=== PATIENT | female | born 1940 | race Two or more races ===

== ENCOUNTER 2025-01-03 20:45 | Emergency (ER) | payer OTHER ==
[~2025-01-03] VITALS: Ht 154.9 cm; Wt 100.0 kg
--- NOTE | 2025-01-03 22:41 | ED.PDOC ---
History of Present Illness HPI Comments 84-year-old female came to ER via EMS for chest pains. Patient diagnosed 5 days ago at [facility] for pneumonia. She is still weak and recovering from her illness, when she found the urge to eat earlier so she ate some pizza. About an hour after, she started feeling dizzy and lightheaded, she felt nauseated and had vomiting and diarrhea. Then she started having left sided chest pains, heavy, which resolved spontaneously after 5 minutes. Patient has no more chest pains at this time of care. States she just feels weak and fatigued. Chief Complaint: Chest Pain Time Seen by MD: 22:40 Reviewed Notes: Nurses Notes Allergies: Coded Allergies: Aspirin (Verified Allergy, Unknown, 01/03/25) Penicillins (Verified Allergy, Unknown, 01/03/25) Information Source: Patient Mode of Arrival: EMS Severity: Moderate Timing: Hours Review of Systems REVIEW OF SYSTEMS: No fever, no chills, or fatigue HEENT: No sore throat, no earache, no congestion, no neck pain. Cardiac: (+) chest pain. No palpitations. Lungs: No shortness of breath, no cough. GI: No nausea, (+) vomiting, (+) diarrhea, no constipation, no abdominal pain : No dysuria, frequency, or urgency. No hematuria. Musculoskeletal: No joint pain , no joint swelling, no extremity edema. Skin: No rash, no itching. Neuro: No headache, (+) dizziness, no weakness Vital Signs Vital Signs Date Time Temp Pulse Resp B/P (MAP) Pulse Ox O2 Delivery O2 Flow Rate FiO2 01/04/25 02:32 77 14 112/61 (78) 95 01/04/25 00:27 Room Air* 0 21 21 01/04/25 00:26 97.8 97.8 Physical Exam General: Awake, alert and oriented. No acute distress. Skin: Skin in warm, dry and intact. Appropriate color for ethnicity. Nailbeds pink with no cyanosis. HEENT: The head is normocephalic and atraumatic. Conjunctivae are clear without exudates or hemorrhage. Sclera is non-icteric. EOM are intact. No signs of nystagmus. Eyelids are normal in appearance without swelling or lesions. Oral mucosa is pink and moist Neck: The neck is supple with normal range of motion. No JVD. Cardiac: Heart rate and rhythm are normal. No murmurs, gallops, or rubs are auscultated. Respiratory: No signs of respiratory distress. Lung sounds are clear in all lobes bilaterally without rales, ronchi, or wheezes. Abdominal: Abdomen is soft, non-tender without distention. Bowel sounds are present and normoactive in all four quadrants. Extremities: Upper and lower extremities are atraumatic in appearance without deformity or edema. Neurological: The patient is awake, alert and oriented to person, place, and time with normal speech. Speech is clear. There is no facial asymmetry. Psychiatric: Appropriate mood and affect. Good judgement and insight. No visual or auditory hallucinations. 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 Was a procedure done?: No EKG EKG : Pulse Rate (adult): 78 Cardiac Rhythm: Afib Differential Dx Considerations may include: Aspiration pneumonia, coronary artery disease, mi, electrolyte imbalance X-Ray, Labs, Meds, VS Vital Signs Date Time Temp Pulse Resp B/P (MAP) Pulse Ox O2 Delivery O2 Flow Rate FiO2 01/04/25 02:32 77 14 112/61 (78) 95 01/04/25 00:27 103 16 94 Room Air* 0 21 21 01/04/25 00:26 97.8 103 14 114/65 (81) 94 97.8 01/04/25 00:08 84 01/03/25 22:41 78 01/03/25 21:53 78 01/03/25 20:56 90 01/03/25 20:49 98.6 75 16 109/76 (87) 98 98.6 Lab Test 01/04/25 01:24 01/04/25 00:37 01/03/25 22:24 01/03/25 21:17 Range/Units Troponin I High Sensitivity 3 L 3 L < 3 L < 3 L </=34 ng/L White Blood Count 8.5 4.4-10.8 10^3/uL Red Blood Count 4.69 4.0-5.20 10^6/uL Hemoglobin 14.6 12.2-16.2 g/dL Hematocrit 45.0 36.0-46.0 % Mean Corpuscular Volume 95.8 80.0-100.0 fL Mean Corpuscular Hemoglobin 31.2 28.0-32.0 pg Mean Corpuscular Hemoglobin Concent 32.6 32.0-36.0 g/dL Red Cell Distribution Width 14.2 11.8-14.3 % Platelet Count 322 140-450 10^3/uL Mean Platelet Volume 9.9 6.9-10.8 fL Neutrophils (%) (Auto) 62.1 37.0-80.0 % Lymphocytes (%) (Auto) 28.5 10.0-50.0 % Monocytes (%) (Auto) 8.0 0.0-12.0 % Eosinophils (%) (Auto) 1.0 0.0-7.0 % Basophils (%) (Auto) 0.4 0.0-2.0 % Neutrophils # (Auto) 5.3 1.6-8.6 10 ^3/uL Lymphocytes # (Auto) 2.4 0.4-5.4 10 ^3/uL Monocytes # (Auto) 0.7 0-1.3 10 ^3/uL Eosinophils # (Auto) 0.1 0-0.8 10 ^3/uL Basophils # (Auto) 0 0-0.2 10 ^3/uL Nucleated Red Blood Cells 0.2 % Sodium Level 141 136-145 mmol/L Potassium Level 4.4 3.5-5.1 mmol/L Chloride Level 106 98-107 mmol/L Carbon Dioxide Level 24 20-31 mmol/L Anion Gap 11 5-15 Blood Urea Nitrogen 25 H 9-23 mg/dL Creatinine 1.02 0.550-1.02 mg/dL Glomerular Filtration Rate Calc 55 >90 mL/min BUN/Creatinine Ratio 24.5 H 10.0-20.0 Serum Glucose 172 H 74-106 mg/dL Calcium Level 10.9 H 8.7-10.4 mg/dL Total Bilirubin 0.3 0.2-1.0 mg/dL Aspartate Amino Transferase (AST) 20 13-40 U/L Alanine Aminotransferase (ALT) 24 7-40 U/L Alkaline Phosphatase 62 46-116 U/L B-Type Natriuretic Peptide 149.20 0-100 pg/mL Total Protein 7.2 5.7-8.2 g/dL Albumin 4.5 3.2-4.8 g/dL Time of 1ST Reevaluation: 22:33 Reevaluation 1ST: Unchanged Patient Education/Counseling: Diagnosis, Treatment Family Education/Counseling: No Family Present Departure 1 Departure Time of Disposition: 02:39 Impression: Primary Impression: Chest pain Disposition: 01 HOME / SELF CARE / HOMELESS Condition: Stable Additional Instructions: ED DISCHARGE INSTRUCTIONS Instructions: Please read all instructions provided in this packet carefully. Although you have been discharged from the Emergency Department, this does not mean that you have a "clean bill of health". No definitive diagnosis for your symptoms has been made today. It is possible that you are in the process of developing a serious illness. This is why you must return to the ED without fail if any new or worsening symptoms (especially if your symptoms include chest pain, trouble breathing, abdominal pain, fever, headache, confusion, trouble seeing, or trouble walking) It is also very important that you see a primary care doctor within the next 3-5 days to follow up. If you are unable to get an appointment, return to the ED for re-evaluation. CHEST PAIN EDUCATION There are many things that can cause chest pain. Some are not serious and will get better on their own in a few days. But some kinds of chest pain need more testing and treatment. Your doctor may have recommended a follow-up visit in the next few days. If you are not getting better, you may need more tests or treatment. Even though your doctor has released you, you still need to watch for any problems. The doctor carefully checked you, but sometimes problems can develop later. If you have new symptoms or if your symptoms do not get better, get medical care right away. If you have worse or different chest pain or pressure that lasts more than 5 minutes or you passed out (lost consciousness), call 911 or seek other emergency help right away. A medical visit is only one step in your treatment. Even if you feel better, you still need to do what your doctor recommends, such as going to all suggested follow-up appointments and taking medicines exactly as directed. This will help you recover and help prevent future problems. How can you care for yourself at home? Rest until you feel better. Take your medicine exactly as prescribed. Call your doctor if you think you are having a problem with your medicine. Do not drive after taking a prescription pain medicine. When should you call for help? Call 911 if: You passed out (lost consciousness). You have severe difficulty breathing. You have symptoms of a heart attack. These may include: Chest pain or pressure, or a strange feeling in your chest. Sweating. Shortness of breath. Nausea or vomiting. Pain, pressure, or a strange feeling in your back, neck, jaw, or upper belly or in one or both shoulders or arms. Lightheadedness or sudden weakness. A fast or irregular heartbeat. After you call 911, the chemical operator may tell you to chew 1 adult-strength or 2 to 4 low-dose aspirin. Wait for an ambulance. Do not try to drive yourself. Call your doctor now or seek immediate medical care if: You have any trouble breathing. You have new or different chest pain. You are dizzy or lightheaded, or you feel like you may faint. Watch closely for changes in your health, and be sure to contact your doctor if you do not get better as expected. Current as of: May 21, 2024 Author: Huddler Staff? Comments Extensive evaluation was performed in attempt to identify or rule out: (See differential diagnosis section) The following tests were ordered, and results were reviewed by me: (See diagnostic results section) The following test were independently interpreted by me: N/A I reviewed and agreed with the following test results read by other providers: N/A I reviewed the following notes from the pt's past medical encounters: (None available at this time) Additional information was gathered from interviewing the following independent historians: N/A Discussion of management or test interpretation with external physician/other qualified health animal daycare provider: N/A Addressed [ ]one or more chronic illnesses with severe exacerbation, progression, or side effects of treatment: [ ]an acute or chronic illness that poses a threat to life or bodily function: [ ] Decision regarding hospitalization or escalation of hospital level of care: Risk and benefits of admission for further treatment of patient's condition was considered. Due to patient's current clinical condition, high risk of decline and poor outcome if discharged and need for further inpatient management and monitoring, patient will be admitted to the hospital. Drug therapy requiring intensive monitoring for toxicity: N/A Parenteral controlled substances: N/A Decision regarding elective major surgery with identified patient or procedure r isk factors: N/A Decision regarding emergency major surgery: N/A Decision not to resuscitate or to de-escalate care because of poor prognosis: N/A Diagnosis or treatment significantly limited by social determinants of health: N/A Decision regarding hospitalization or escalation of hospital level of care: Risks and benefits of admission for further treatment of patient's condition was considered however due to patient's stable condition patient will be discharged to follow up closely or return to care for worsening of condition or inability to follow up. Critical Care Note Critical Care Time?: Yes (35 min-critical care time only) Critical care comment: Chest pain Stability Stability form required: No Heart Score Heart Score: Heart Score Response (Comments) Value History Moderate Suspicious 1 EKG Repolarization Disturb 1 Age >65 2 Risk Factors >3 or Hx ASHD 2 Troponin Normal limit 0 Total 6 I personally scribed for SHERMAN DOWNEY MD ([email or web address]) on 01/03/25 at 22:41. Electronically submitted by Reese Slater ([facility]). SHERMAN DOWNEY MD Jan 03, 2025 22:41
[2025-01-03 22:46] LABS: Basophils # (auto) 0 10 ^3/uL (0-0.2); Basophils % (auto) 0.4 % (0.0-2.0); Eosinophils # (auto) 0.1 10 ^3/uL (0-0.8); Hemoglobin 14.6 g/dL (12.2-16.2); Lymphocytes # (auto) 2.4 10 ^3/uL (0.4-5.4); Lymphocytes % (auto) 28.5 % (10.0-50.0); Mean Corpuscular Hemoglobin 31.2 pg (28.0-32.0); Mean Corpuscular Hgb Conc. 32.6 g/dL (32.0-36.0); Mean Corpuscular Volume 95.8 fL (80.0-100.0); Monocytes # (auto) 0.7 10 ^3/uL (0-1.3); Neutrophils # (auto) 5.3 10 ^3/uL (1.6-8.6); Neutrophils % (auto) 62.1 % (37.0-80.0); Nucleated Red Blood Cells % 0.2 %; Platelet Count (auto) 322 10^3/uL (140-450); Red Blood Cells 4.69 10^6/uL (4.0-5.20); Red Cell Distribution Width 14.2 % (11.8-14.3); White Blood Cell 8.5 10^3/uL (4.4-10.8)
[2025-01-03 23:15] LABS: Alanine Aminotransferase 24 U/L (7-40); Albumin 4.5 g/dL (3.2-4.8); Alkaline Phosphatase 62 U/L (46-116); Anion Gap 11 (5-15); Aspartate Aminotransferase 20 U/L (13-40); BUN/Creatinine Ratio 24.5 (10.0-20.0); Bilirubin, Total 0.3 mg/dL (0.2-1.0); Carbon Dioxide 24 mmol/L (20-31); Chloride 106 mmol/L (98-107); Potassium 4.4 mmol/L (3.5-5.1); Sodium 141 mmol/L (136-145); Total Protein 7.2 g/dL (5.7-8.2)
[2025-01-03 23:18] LABS: Blood Urea Nitrogen 25 mg/dL (9-23); Calcium 10.9 mg/dL (8.7-10.4); Glucose 172 mg/dL (74-106)
--- NOTE | 2025-01-03 23:44 | DVH ---
CHEST RADIOGRAPH Indication: cp Technique: Single frontal view of the chest was obtained COMPARISON: None FINDINGS: Lines and Tubes: None Lungs: Clear Pleura: No effusion.No pneumothorax. Cardiomediastinal contours: Unremarkable IMPRESSION: No abnormality demonstrated.
[2025-01-04 00:26] VITALS: TEMP 97.8
[2025-01-04 00:27] VITALS: PULSE 103; RESP 16; O2SAT 94
[2025-01-04 02:32] VITALS: BP 112/61; PULSE 77; RESP 14; O2SAT 95
--- NOTE | 2025-01-04 06:21 | ECG ---
[facility] Test Date: 2025-01-03 Test Time: 21:53:33 Pat Name: SAMEER ROSARIO Department: ER Room: Gender: F Class A Regional Drivers: : 1940 Requested By: SHERMAN DOWNEY Order Number: [id number] Reading MD: Abdirizak Leslie Measurements Intervals [place] Rate: 78 P: 0 GA: 0 QRS: 23 QRSD: 88 T: 1 QT: 357 QTc: 407 Interpretive Statements Atrial fibrillation Low voltage, precordial leads Borderline T abnormalities, inferior leads Electronically Signed On 01-04-2025 19:20:44 PDT by Abdirizak Leslie Please click the below link to view image of tracing.
--- NOTE | 2025-01-04 06:21 | ECG ---
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
--- NOTE | 2025-01-05 14:38 | ECG ---
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
== END 2025-01-04 03:09 | disposition home or self-care (01) ==
LOC: EDBD 20:45 → ER 20:51
DX: R07.9 Chest pain, unspecified (principal); R11.2 Nausea with vomiting, unspecified; R19.7 Diarrhea, unspecified; I10 Essential (primary) hypertension; I48.91 Unspecified atrial fibrillation; E11.9 Type 2 diabetes mellitus without complications; Z98.890 Other specified postprocedural states; Z88.0 Allergy status to penicillin; Z88.6 Allergy status to analgesic agent
CPT/HCPCS: 36415; 71045; 80053; 83880; 84484; 85025; 93005

== ENCOUNTER 2025-07-07 16:08 | Inpatient (IN) | payer OTHER ==
[~2025-07-07] VITALS: Ht 154.9 cm; Wt 91.9 kg
--- NOTE | 2025-07-07 16:53 | ED.PDOC ---
GI ASSESSMENT HPI Comments This is an 85-year-old female who comes with chief complaint of nausea and vomiting x1 month. The patient states that the symptoms have been worsening. She states that she vomited x3 today so she called the transport and was taken to the [facility]. At the clinic, her pain was an 8/10. The patient denies any fever or chills. She also states that she has not been having any normal bowel movements and denies any hematemesis. When the paramedics arrived, the patient's systolic was 94. The patient was given a total of 8 mg of Zofran IV push. The patient was also given normal saline bolus of 500 cc to address the hypotension. The patient is able to give us her medical history without any difficulty. Chief Complaint: Nausea/Vomiting Time Seen by MD: 16:12 Reviewed Notes: Nurses Notes, Sod Cutter Notes, Medications, Allergies (Allergies) Allergies: Coded Allergies: Aspirin (Verified Allergy, Unknown, 01/03/25) Penicillins (Verified Allergy, Unknown, 01/03/25) Mode of Arrival: EMS Past Medical History PAST MEDICAL HISTORY: AFIB, DM, GERD, High Lipids, HTN Past Medical History (Other): IBS Surgical History: Tonsillectomy Surgical History (Other): Bilateral hip surgery, cataract surgery DIRECTOR OF OFFICIATING History: Denies all DIRECTOR OF OFFICIATING Hx Family History Family History: No family hx of Cancer, No family hx of DM, No family hx of Heart thanh Social History Smoker: Non-Smoker Alcohol: Denies ETOH Use Drugs: Denies Drug Use Lives In: Home Constitutional: denies: chills, diaphoresis, fatigue, fever, malaise, sweats, weakness, others EENTM: denies: blurred vision, double vision, ear bleeding, ear discharge, ear drainage, ear pain, ear ringing, eye pain, eye redness, hearing loss, mouth pain , mouth swelling, nasal discharge, nose bleeding, nose congestion, nose pain, photophobia, tearing, throat pain, throat swelling, voice changes, others Respiratory: denies: cough, hemoptysis, orthopnea, SOB at rest, shortness of breath, SOB with excertion, stridor, wheezing, others Cardiovascular: denies: chest pain, dizzy spells, diaphoresis, Dyspnea on exertion, edema, irregular heart beat, left arm pain, lightheadedness, palpitations, PND, syncope, others Gastrointestinal: reports: abdominal pain, nausea, vomiting; denies: abdomen distended, blood streaked bowels, constipated, diarrhea, dysphagia, difficulty swallowing, hematemesis, melena, poor appetite, poor fluid intake, rectal bleeding, rectal pain, others Genitourinary: denies: abnormal vagina bleeding, burning, dyspareunia, dysuria, flank pain, frequency, hematuria, incontinence, pain, , vagina discharge, urgency, others Neurological: denies: dizziness, fainting, headache, left sided numbness, left sided weakness, numbness, paresthesia, pre-existing deficit, right sided numbness, right sided weakness, seizure, speech problems, tingling, tremors, weakness, others Musculoskeletal: denies: back pain, gout, joint pain, joint swelling, muscle pain, muscle stiffness, neck pain, others Integumetry: denies: bruises, change in color, change in hair/nails, dryness, laceration, lesions, lumps, rash, wounds, others Hematologic/Lymphatic: denies: anemia, blood clots, easy bleeding, easy bruising, swollen glands, others Endocrine: denies: excessive hunger, excessive sweating, excessive thirst, excessive urination, flushing, intolerance to cold, intolerance to heat, unexplained weight gain, unexplained weight loss, others Psychiatric: denies: anxiety, bipolar disorder, depression, hopeless, panic disorder, schizophrenia, sleepless, suicidal, others Physical Exam General Appearance: Moderate Distress, Obese HEENT: Normal ENT Inspection, Pharynx Normal, TMs Normal Neck: Full Range of Motion, Non-Tender, Normal, Normal Inspection Respiratory: Chest Non-Tender, Lungs Clear, No Accessory Muscle Use, No Respiratory Distress, Normal Breath Sounds Cardiovascular: No Edema, No JVD, No Murmur, No Gallop, Normal Peripheral Pulses, Regular Rate/Rhythm Breast Exam: Deferred Gastrointestinal: Diffuse, No Organomegaly, No Pulsatile Mass, Normal Bowel Sounds, Soft, Tenderness Genitalia: Deferred Pelvic: Deferred Rectal: Deferred Extremities: No calf tenderness, Normal capillary refill, Normal inspection, Normal range of motion, Non-tender, No pedal edema Musculoskeletal : Apperance: Normal Neurologic: Alert, manager of case II-XII nml as Tested, Motor Weakness, Normal Affect, Normal Mood, No Sensory Deficits Cerebellar Function: Normal Reflexes: Normal Skin: Dry, Normal Color, Warm Lymphatic: No Adenopathy EKG EKG : Pulse Rate (adult): 81 Dix: Normal Cardiac Rhythm: Afib Block: None ST: Nonsp Was a procedure done? Was a procedure done?: No GI differential Dx Differential Diagnosis: Appendicitis, Gastritis/PUD, Gastroenteritis, Inflammatory BD, Pancreatitis, UTI, Electrolyte Imbalance, Food Poisoning X-Ray, Labs, Meds, VS Vital Signs Date Time Temp Pulse Resp B/P (MAP) Pulse Ox O2 Delivery O2 Flow Rate FiO2 07/07/25 19:00 76 21 126/47 (73) 97 07/07/25 17:12 81 07/07/25 17:00 87 21 95 Room Air* 0 21 07/07/25 17:00 87 21 117/70 (86) 95 07/07/25 16:21 81 07/07/25 16:21 98.4 70 16 94/57 97 98.4 Lab Test 07/07/25 17:49 07/07/25 17:00 07/07/25 16:38 Range/Units POC Glucose 74 70-106 mg/dl Urine Color Light-orange Yellow Urine Clarity Turbid H Clear Urine pH 6.0 5.0-9.0 Urine Specific [place] 1.018 1.001-1.035 Urine Protein Trace H Negative Urine Ketones 4+ H Negative Urine Blood Negative Negative /uL Urine Nitrite 2+ H Negative Urine Bilirubin Negative Negative Urine Urobilinogen Normal Negative mg/dL Urine Leukocyte Esterase 3+ Negative /uL Urine RBC 3 0 - 4 /hpf Urine Microscopic WBC 147 H 0-5 /HPF Urine Squamous Epithelial Cells Few <5 /hpf Urine Bacteria Few H None Seen /hpf Urine Mucus Few None Seen Urine Glucose Normal Normal mg/dL White Blood Count 5.8 4.4-10.8 10^3/uL Red Blood Count 4.01 4.0-5.20 10^6/uL Hemoglobin 13.0 12.2-16.2 g/dL Hematocrit 38.9 36.0-46.0 % Mean Corpuscular Volume 96.8 80.0-100.0 fL Mean Corpuscular Hemoglobin 32.4 H 28.0-32.0 pg Mean Corpuscular Hemoglobin Concent 33.4 32.0-36.0 g/dL Red Cell Distribution Width 16.3 H 11.8-14.3 % Platelet Count 217 140-450 10^3/uL Mean Platelet Volume 9.0 6.9-10.8 fL Neutrophils (%) (Auto) 71.0 37.0-80.0 % Lymphocytes (%) (Auto) 17.2 10.0-50.0 % Monocytes (%) (Auto) 11.2 0.0-12.0 % Eosinophils (%) (Auto) 0.3 0.0-7.0 % Basophils (%) (Auto) 0.3 0.0-2.0 % Neutrophils # (Auto) 4.1 1.6-8.6 10 ^3/uL Lymphocytes # (Auto) 1.0 0.4-5.4 10 ^3/uL Monocytes # (Auto) 0.7 0-1.3 10 ^3/uL Eosinophils # (Auto) 0 0-0.8 10 ^3/uL Basophils # (Auto) 0 0-0.2 10 ^3/uL Nucleated Red Blood Cells 0.3 % Sodium Level 142 136-145 mmol/L Potassium Level 3.2 L 3.5-5.1 mmol/L Chloride Level 103 98-107 mmol/L Carbon Dioxide Level 21 20-31 mmol/L Anion Gap 18 H 5-15 Blood Urea Nitrogen < 5 L 9-23 mg/dL Creatinine 0.75 0.550-1.02 mg/dL Glomerular Filtration Rate Calc 79 >90 mL/min BUN/Creatinine Ratio 6.7 L 10.0-20.0 Serum Glucose 79 74-106 mg/dL Calcium Level 9.6 8.7-10.4 mg/dL Total Bilirubin 0.4 0.2-1.0 mg/dL Aspartate Amino Transferase (AST) 15 13-40 U/L Alanine Aminotransferase (ALT) < 9 7-40 U/L Alkaline Phosphatase 50 46-116 U/L Total Protein 5.6 L 5.7-8.2 g/dL Albumin 3.3 3.2-4.8 g/dL Lipase 44 12-53 U/L Current Medications Medications (Trade) Dose Ordered Sig/Estelle Route Start Time Stop Time Status Last Admin Sodium Chloride 500 ml @ 500 mls/hr Q1H ONCE IVB 07/07/25 16:15 07/07/25 17:14 DC 07/07/25 17:22 Levofloxacin/ Dextrose 100 ml @ 100 mls/hr ONCE ONCE IV 07/07/25 18:30 07/07/25 19:29 DC 07/07/25 18:54 PROCEDURE(s): ABPL - CT AB PEL WO CON-NO ORAL OR IV IMPRESSION: Limited evaluation of the intrapelvic structures due to streak artifact from bilateral hip prosthesis. No evidence of acute abdominopelvic abnormalities. Colonic diverticulosis without diverticulitis. IV Hep-Lock was established. The CBC is within normal limits. The CBC is within normal limits. The chemistry shows hypokalemia at 3.2 The rest of the lab work was within normal limits. The urine test shows: The urine is positive for a significant infection The patient was given Levaquin IV piggyback At this time we did contact [facility] and they stated that the patient should be admitted to our facility secondary to the possible syncopal episodes that she now states that she has had. The authorization number for admission is [id number] The patient is being admitted The patient also remains a little bit hypotensive as well. The patient is admitted Images Reviewed?: Images reviewed and evaluated by me Time of 1ST Reevaluation: 17:11 Reevaluation 1ST: Unchanged Patient Education/Counseling: Diagnosis, Treatment, Prognosis Family Education/Counseling: No Family Present SEPSIS Sepsis Screen Date sepsis recognized/suspect: Jul 07, 2025 Time Sepsis recognized/suspect: 1626 Recent Procedure: No On Antibiotic Therapy: No Respiratory Rate >20: No Heart Rate >90: No Temp<36 C (96.8 F) or >38.3 C: No SBP <90 or MAP <65 mmHG: No New Acute Mental Status Change: No Is the patient on CPAP, BIPAP,: No Physician Orders Ct Ab Pel Wo Con-No Oral Or Iv (07/07/25 16:13) Heplock Iv (07/07/25 16:13) Light Oil Operator (07/07/25 16:13) Blood Pressure (07/07/25 16:13) Pulse Oximetry (07/07/25 16:13) Electrocardigram (07/07/25 18:15) Potassium Chl 20meq/100ml (07/07/25 19:30) Vital Signs Date Time Temp Pulse Resp B/P (MAP) Pulse Ox O2 Delivery O2 Flow Rate FiO2 07/07/25 19:00 76 21 126/47 (73) 97 07/07/25 17:12 81 07/07/25 17:00 87 21 95 Room Air* 0 21 07/07/25 17:00 87 21 117/70 (86) 95 07/07/25 16:21 81 07/07/25 16:21 98.4 70 16 94/57 97 98.4 Laboratory Tests Test 07/07/25 16:38 White Blood Count 5.8 10^3/uL (4.4-10.8) Medications Medications Dose Ordered Sig/Estelle Route Start Time Stop Time Status Last Admin Dose Admin Levofloxacin/ Dextrose 100 ml @ 100 mls/hr ONCE ONCE IV 07/07/25 18:30 07/07/25 19:29 DC 07/07/25 18:54 Sodium Chloride 500 ml @ 500 mls/hr Q1H ONCE IVB 07/07/25 16:15 07/07/25 17:14 DC 07/07/25 17:22 Departure 1 Departure Time of Disposition: 18:18 Impression: Primary Impression: Intractable abdominal pain Additional Impressions: UTI (urinary tract infection) Qualified Codes: N30.01 - Acute cystitis with hematuria Intractable vomiting Autonomic dysfunction Disposition: ADMITTED INPATIENT Admit to: [facility] Condition: Fair Critical Care Note Critical Care Time?: No Stability Stability form required: Yes Unstable for transfer: Telemetry monitoring (Telemetry monitoring required), ED Physician Assesment (Clinical assesment) Heart Score Heart Score: Heart Score Response (Comments) Value History N/A 0 EKG N/A 0 Age N/A 0 Risk Factors N/A 0 Troponin N/A 0 Total 0 I personally scribed for AENL ARNOLD MD ([email or web address]) on 07/07/25 at 18:16. Electronically submitted by Pasha Ordaz ([email or web address]). ANEL ARNOLD MD Jul 07, 2025 16:53
[2025-07-07 17:00] VITALS: PULSE 87; RESP 21; O2SAT 95
[2025-07-07 17:00] LABS: Hematocrit 38.9 % (36.0-46.0); Hemoglobin 13.0 g/dL (12.2-16.2); Mean Corpuscular Hemoglobin 32.4 pg (28.0-32.0); Mean Corpuscular Volume 96.8 fL (80.0-100.0); Nucleated Red Blood Cells % 0.3 %
[2025-07-07 17:16] LABS: Albumin 3.3 g/dL (3.2-4.8); Alkaline Phosphatase 50 U/L (46-116); Anion Gap 18 (5-15); Calcium 9.6 mg/dL (8.7-10.4); Carbon Dioxide 21 mmol/L (20-31); Chloride 103 mmol/L (98-107); Glucose 79 mg/dL (74-106); Lipase 44 U/L (12-53); Sodium 142 mmol/L (136-145)
[2025-07-07 17:17] LABS: Bilirubin, Total 0.4 mg/dL (0.2-1.0)
[2025-07-07 17:18] LABS: Alanine Aminotransferase < 9 U/L (7-40); BUN/Creatinine Ratio 6.7 (10.0-20.0); Blood Urea Nitrogen < 5 mg/dL (9-23); Potassium 3.2 mmol/L (3.5-5.1); Total Protein 5.6 g/dL (5.7-8.2)
[2025-07-07] MEDS: SODIUM CHLORIDE 0.9% 500 ML IVB ONE (17:22)
[2025-07-07] MEDS: ONDANSETRON HCL 4 MG/2 ML VIAL IV ONE (17:22)
[2025-07-07] MEDS: MORPHINE SULFATE 4 MG/ML SYR/VIAL IV ONE (17:22)
--- NOTE | 2025-07-07 17:51 | DVH ---
Exam: CT CT AB PEL WO CON-NO ORAL OR IV History: pain Comparison Study: None TECHNIQUE: Multidetector CT of the abdomen and pelvis without IV contrast. Axial, coronal and sagitta l multiplanar reformats were obtained from the axial data set by the technologist. Radiation Dose Information: CT Dose: CTDI volume is 21.06 mGy. Dose-length product is 3.92 mGy*cm FINDINGS: Bibasilar atelectasis. Partially visualized heart is normal in size. Trace pericardial effusion. Liver, spleen, gallbladder, pancreas and adrenal glands unremarkable. 0.7 cm hyperdense right renal lesion which may represent a hemorrhagic / proteinaceous cysts. Otherw ise, kidneys, and visualized ureters unremarkable. The urinary bladder is obscured by streak artifact from bilateral hip prosthesis. Visualized uterus and adnexa unremarkable. There is Possible Wright ca theter within The Urinary bladder. Limited evaluation of the stomach due to inadequate distention. Small bowel loops unremarkable. Appe ndix is unremarkable. Small to moderate amount of fecal material within the colon. Colonic diverticu losis without diverticulitis. Mild distal rectal wall thickening which appears to be from inadequate distention. No evidence of Intraperitoneal free air or free fluid. No evidence of aortic aneurysm. Moderate atherosclerotic calcification of the aorta and bilateral il iacs. No significant lymphadenopathy. Moderate fat containing right ventral lower abdominal hernia within the musculature. Calcified inject ion granulomas of the bilateral posterior pelvis. Mild body wall edema. Bilateral hip prosthesis is n oted with streak artifact from hardware limiting evaluation of the adjacent structures. No evidence o f acute osseous abnormalities. IMPRESSION: Limited evaluation of the intrapelvic structures due to streak artifact from bilateral hip prosthesis . No evidence of acute abdominopelvic abnormalities. Colonic diverticulosis without diverticulitis.
[2025-07-07 18:04] LABS: Urine Protein, UAD TRACE (Negative)
[2025-07-07 19:45] VITALS: PULSE 68; RESP 17; O2SAT 96
[2025-07-07] MEDS ORDERED: MORPHINE SULFATE INJ 2 MG/ml SYRG IV PRN (20:00)
[2025-07-07] MEDS ORDERED: DEXTROSE (50%) 50ML SYRG IV PRN (20:00)
[2025-07-07] MEDS: POTASSIUM CHL 20MEQ/100ML 100 ML IV ONE (20:04)
[2025-07-07] MEDS: PANTOPRAZOLE 40 MG/10 ML VIAL INJ IV ONE (21:02)
[2025-07-07] MEDS: ONDANSETRON HCL 4 MG/2 ML VIAL IV PRN (21:02)
[2025-07-07] MEDS: SODIUM CHLORIDE 0.9% 1,000 ML IV ONE (22:41)
[2025-07-08] MEDS: ACCU-CHEK COMFORT CURVE STRIP VI SCH (01:30)
[2025-07-08] MEDS: InsuLIN REG 1unit/0.01ml Soln (100units/ml) SC SCH (01:30)
--- NOTE | 2025-07-08 04:53 | DVHHP2 ---
History of Present Illness Reason for Visit: Abdominal pain History of Present Illness 85-year-old female presents for evaluation of abdominal pain. Patient reports a one month history of decreased appetite with associated nausea, vomiting and diffuse abdominal pain. Patient reports symptoms began shortly after starting Ozempic on 05/26/2025. Patient stopped taking Ozempic on 06/15/2025 but symptoms continued. No diarrhea or constipation. Past Medical History Diabetes mellitus, GERD, dyslipidemia, hypertension, AFib Past Surgical History Tonsillectomy, bilateral hip surgery Family History Noncontributory Smoke: No ALCOHOL: none Drugs: None Lives: with Family Review of Systems Review of Systems Review of systems are currently negative otherwise addressed in HPI. Allergies: Coded Allergies: Aspirin (Verified Allergy, Unknown, 01/03/25) Penicillins (Verified Allergy, Unknown, 01/03/25) Medications Current Medications Medications Dose Ordered Sig/Estelle Route Start Time Stop Time Status Last Admin Dose Admin Pantoprazole Sodium 40 mg DAILY IV 07/08/25 10:00 Diagnostic Test (Pha) 1 strip Q6HR 07/08/25 00:00 07/08/25 01:30 1 STRIP Insulin Human Regular Q6HR SC 07/08/25 00:00 Dextrose 50 ml UD PRN IV 07/07/25 20:00 Acetaminophen/ Hydrocodone Bitart 1 tab Q4HP PRN PO 07/07/25 20:00 Ondansetron HCl 4 mg Q4HP PRN IV 07/07/25 20:00 07/07/25 21:02 4 MG Acetaminophen 650 mg Q6HP PRN PO 07/07/25 20:00 Morphine Sulfate 2 mg Q6HPRN PRN IV 07/07/25 20:00 Exam Vital Signs Vital Signs Date Time Temp Pulse Resp B/P (MAP) Pulse Ox O2 Delivery O2 Flow Rate FiO2 07/08/25 04:00 71 07/08/25 03:11 10 116/50 (72) 96 07/07/25 19:45 Room Air* 0 21 07/07/25 16:21 98.4 98.4 Exam Gen: 85-year-old female in mild distress Skin: Warm, dry, normal color and texture, no rash. HEENT: Normocephalic atraumatic, mucous membranes moist and pink. Neck: Cervical and supraclavicular nodes normal without enlargement, trachea is midline, thyroid gland is normal without masses. Pulmonary: Clear to auscultation and percussion bilaterally. Cardiac: Regular rate and rhythm. No murmur Abdomen: Soft, nontender, nondistended, bowel sounds present all 4 quadrants, no guarding, no rigidity, no organomegaly. Extremities: No cyanosis, clubbing, no edema Neuro: Cranial nerves II through XII grossly intact, normal affect and speech, no focal motor deficits. Labs/Xrays ORDERING PHYSICIAN: ANEL ARNOLD MD PROCEDURE(s): ABPL - CT AB PEL WO CON-NO ORAL OR IV REASON: pain ORDER NUMBER(s): [id number], ACCESSION NUMBER(s): [id number] Exam: CT CT AB PEL WO CON-NO ORAL OR IV History: pain Comparison Study: None TECHNIQUE: Multidetector CT of the abdomen and pelvis without IV contrast. Axial, coronal and sagittal multiplanar reformats were obtained from the axial data set by the technologist. Radiation Dose Information: CT Dose: CTDI volume is 21.06 mGy. Dose-length product is 3.92 mGy*cm FINDINGS: Bibasilar atelectasis. Partially visualized heart is normal in size. Trace pericardial effusion. Liver, spleen, gallbladder, pancreas and adrenal glands unremarkable. 0.7 cm hyperdense right renal lesion which may represent a hemorrhagic / proteinaceous cysts. Otherwise, kidneys, and visualized ureters unremarkable. The urinary bladder is obscured by streak artifact from bilateral hip prosthesis. Visualized uterus and adnexa unremarkable. There is Possible Wright catheter within The Urinary bladder. Limited evaluation of the stomach due to inadequate distention. Small bowel loops unremarkable. Appendix is unremarkable. Small to moderate amount of fecal material within the colon. Colonic diverticulosis without diverticulitis. Mild distal rectal wall thickening which appears to be from inadequate distention. No evidence of Intraperitoneal free air or free fluid. No evidence of aortic aneurysm. Moderate atherosclerotic calcification of the aorta and bilateral iliacs. No significant lymphadenopathy. Moderate fat containing right ventral lower abdominal hernia within the musculature. Calcified injection granulomas of the bilateral posterior pelvis. Mild body wall edema. Bilateral hip prosthesis is noted with streak artifact from hardware limiting evaluation of the adjacent structures. No evidence of acute osseous abnormalities. IMPRESSION: Limited evaluation of the intrapelvic structures due to streak artifact from bilateral hip prosthesis. No evidence of acute abdominopelvic abnormalities. Colonic diverticulosis without diverticulitis. Labs Test 07/08/25 04:14 07/07/25 17:00 07/07/25 16:38 Range/Units POC Glucose 70 70-106 mg/dl Urine Color Light-orange Yellow Urine Clarity Turbid H Clear Urine pH 6.0 5.0-9.0 Urine Specific [place] 1.018 1.001-1.035 Urine Protein Trace H Negative Urine Ketones 4+ H Negative Urine Blood Negative Negative /uL Urine Nitrite 2+ H Negative Urine Bilirubin Negative Negative Urine Urobilinogen Normal Negative mg/dL Urine Leukocyte Esterase 3+ Negative /uL Urine RBC 3 0 - 4 /hpf Urine Microscopic WBC 147 H 0-5 /HPF Urine Squamous Epithelial Cells Few <5 /hpf Urine Bacteria Few H None Seen /hpf Urine Mucus Few None Seen Urine Glucose Normal Normal mg/dL White Blood Count 5.8 4.4-10.8 10^3/uL Red Blood Count 4.01 4.0-5.20 10^6/uL Hemoglobin 13.0 12.2-16.2 g/dL Hematocrit 38.9 36.0-46.0 % Mean Corpuscular Volume 96.8 80.0-100.0 fL Mean Corpuscular Hemoglobin 32.4 H 28.0-32.0 pg Mean Corpuscular Hemoglobin Concent 33.4 32.0-36.0 g/dL Red Cell Distribution Width 16.3 H 11.8-14.3 % Platelet Count 217 140-450 10^3/uL Mean Platelet Volume 9.0 6.9-10.8 fL Neutrophils (%) (Auto) 71.0 37.0-80.0 % Lymphocytes (%) (Auto) 17.2 10.0-50.0 % Monocytes (%) (Auto) 11.2 0.0-12.0 % Eosinophils (%) (Auto) 0.3 0.0-7.0 % Basophils (%) (Auto) 0.3 0.0-2.0 % Neutrophils # (Auto) 4.1 1.6-8.6 10 ^3/uL Lymphocytes # (Auto) 1.0 0.4-5.4 10 ^3/uL Monocytes # (Auto) 0.7 0-1.3 10 ^3/uL Eosinophils # (Auto) 0 0-0.8 10 ^3/uL Basophils # (Auto) 0 0-0.2 10 ^3/uL Nucleated Red Blood Cells 0.3 % Sodium Level 142 136-145 mmol/L Potassium Level 3.2 L 3.5-5.1 mmol/L Chloride Level 103 98-107 mmol/L Carbon Dioxide Level 21 20-31 mmol/L Anion Gap 18 H 5-15 Blood Urea Nitrogen < 5 L 9-23 mg/dL Creatinine 0.75 0.550-1.02 mg/dL Glomerular Filtration Rate Calc 79 >90 mL/min BUN/Creatinine Ratio 6.7 L 10.0-20.0 Serum Glucose 79 74-106 mg/dL Calcium Level 9.6 8.7-10.4 mg/dL Total Bilirubin 0.4 0.2-1.0 mg/dL Aspartate Amino Transferase (AST) 15 13-40 U/L Alanine Aminotransferase (ALT) < 9 7-40 U/L Alkaline Phosphatase 50 46-116 U/L Total Protein 5.6 L 5.7-8.2 g/dL Albumin 3.3 3.2-4.8 g/dL Lipase 44 12-53 U/L SEPSIS Sepsis Screen Date sepsis recognized/suspect: Jul 07, 2025 Time Sepsis recognized/suspect: 1699 Recent Procedure: No On Antibiotic Therapy: No Respiratory Rate >20: No Heart Rate >90: No Temp<36 C (96.8 F) or >38.3 C: No SBP <90 or MAP <65 mmHG: No New Acute Mental Status Change: No Is the patient on CPAP, BIPAP,: No Vital Signs Date Time Temp Pulse Resp B/P (MAP) Pulse Ox O2 Delivery O2 Flow Rate FiO2 07/08/25 04:00 71 07/08/25 03:11 86 10 116/50 (72) 96 07/08/25 01:00 82 15 122/46 (71) 93 07/08/25 00:00 80 07/07/25 23:00 78 16 109/46 (67) 95 07/07/25 21:00 79 15 178/60 (99) 97 Medications Medications Dose Ordered Sig/Estelle Route Start Time Stop Time Status Last Admin Dose Admin Diagnostic Test (Pha) 1 strip Q6HR 07/08/25 00:00 07/08/25 01:30 1 STRIP Levofloxacin/ Dextrose 100 ml @ 100 mls/hr ONCE ONCE IV 07/07/25 18:30 07/07/25 19:29 DC 07/07/25 18:54 100 MLS/HR Ondansetron HCl 4 mg Q4HP PRN IV 07/07/25 20:00 07/07/25 21:02 4 MG Pantoprazole Sodium 40 mg ONCE ONCE IV 07/07/25 20:00 07/07/25 20:41 DC 07/07/25 21:02 40 MG Potassium Chloride 100 ml @ 50 mls/hr ONCE ONCE IV 07/07/25 19:30 07/07/25 21:29 DC 07/07/25 20:04 50 MLS/HR Sodium Chloride 1,000 ml @ 80 mls/hr [id number] ONCE IV 07/07/25 20:00 07/08/25 08:29 07/07/25 22:41 80 MLS/HR Assessment/Plan Assessment/Plan Assessment Intractable abdominal pain Complicated UTI Hypokalemia Hypotension Plan Admit the patient to [facility] to the hospitalist GI consult Levaquin Maintenance IV fluids Resume home medications Continue treatment per orders. Plan discussed with: Patient My Orders Orders - THIEN ZAVALA Procedure Category Date Status Time * Gi [facility] [employer] CONS 07/07/25 Transmitted 19:56 Pantoprazole PHA 07/08/25 In Process (Protonix) 10:00 Sodium Chloride 0.9% PHA 07/07/25 In Process 20:00 Glucose Blood PHA 07/08/25 In Process (Accu-Chek Comfort 00:00 Insulin R (Human) PHA 07/08/25 In Process (Insulin R) 00:00 Dextrose 50% Syringe PHA 07/07/25 In Process 20:00 Admit ADMIT 07/07/25 Transmitted 19:56 Hydrocodone-Acet PHA 07/07/25 In Process 5/325mg Tab (Waves 20:00 Ondansetron Hcl PHA 07/07/25 In Process (Zofran) 20:00 Complete Blood Count LAB 07/08/25 Logged 04:00 Condition: Stable MATHEUS 07/07/25 In Process 19:56 Acetaminophen Tablet PHA 07/07/25 In Process (Tylenol Tablet) 20:00 Clear Liq Diet DIET 07/08/25 Transmitted Breakfast Bedrest With Bathroom MATHEUS 07/07/25 In Process Privileg 19:56 Morphine Sulfate PHA 07/07/25 In Process Injection 20:00 Basic Metabolic Panel LAB 07/08/25 Logged 04:00 Date of Service: Jul 07, 2025 Billing Provider: THIEN ZAVALA Common Visit Codes: 89394-QCPUODO INP/OBS CARE (MOD) THIEN ZAVALA Jul 08, 2025 04:53
[2025-07-08 06:04] LABS: Sodium 144 mmol/L (136-145)
[2025-07-08 06:05] LABS: Anion Gap 15 (5-15); Carbon Dioxide 21 mmol/L (20-31)
[2025-07-08 06:06] LABS: Calcium 8.9 mg/dL (8.7-10.4)
[2025-07-08 06:11] LABS: Hematocrit 36.8 % (36.0-46.0); Hemoglobin 12.5 g/dL (12.2-16.2); Mean Corpuscular Hemoglobin 32.7 pg (28.0-32.0); Mean Corpuscular Volume 95.9 fL (80.0-100.0); Nucleated Red Blood Cells % 0.1 %
[2025-07-08 06:26] LABS: BUN/Creatinine Ratio 6.8 (10.0-20.0); Blood Urea Nitrogen < 5 mg/dL (9-23); Chloride 108 mmol/L (98-107); Glucose 69 mg/dL (74-106); Potassium 3.1 mmol/L (3.5-5.1)
[2025-07-08 08:00] VITALS: PULSE 78; RESP 16; O2SAT 97
--- NOTE | 2025-07-08 12:46 | ECG ---
[facility] Test Date: 2025-07-07 Test Time: 16:21:39 Pat Name: SAMEER ROSARIO Department: Room: [address] [place] [address] A Gender: F [facility] Office Supervisor: : 1940 Requested By: ANEL ARONLD Order Number: [id number] Reading MD: Abdirizak Leslie Measurements Intervals [place] Rate: 81 P: 0 MD: 0 QRS: 1 QRSD: 87 T: -5 QT: 348 QTc: 404 Interpretive Statements Atrial fibrillation Low voltage, precordial leads Electronically Signed On 07-08-2025 17:00:27 PDT by Abdirizak Leslie Please click the below link to view image of tracing.
--- NOTE | 2025-07-08 13:07 | DVHPN2 ---
Progress Note Date Seen: Jul 08, 2025 Medical Necessity Reason Pt with a Central, PICC or Fol: No Subjective Patient reports: No new complaints Review of Systems: HEENT:Normal, CVS:Normal, RESPIRATORY:Normal, GI:Normal, :Normal, MSK:Normal, NEURO:Normal Objective vital signs Vital Sign Date Time Temp Pulse Resp B/P (MAP) Pulse Ox O2 Delivery O2 Flow Rate FiO2 07/08/25 08:00 97.6 78 16 108/62 (77) 97 97.6 07/08/25 08:00 Room Air* 0 21 Total Intake and Output 07/07/25 07/07/25 07/08/25 15:00 23:00 07:00 Intake Total 500 ml 160 ml Balance 500 ml 160 ml medications Current Medications Medications Dose Ordered Sig/Estelle Route Start Time Stop Time Status Last Admin Dose Admin Pantoprazole Sodium 40 mg DAILY IV 07/08/25 10:00 Diagnostic Test (Pha) 1 strip Q6HR 07/08/25 00:00 07/08/25 06:09 1 STRIP Insulin Human Regular Q6HR SC 07/08/25 00:00 Dextrose 50 ml UD PRN IV 07/07/25 20:00 Acetaminophen/ Hydrocodone Bitart 1 tab Q4HP PRN PO 07/07/25 20:00 Ondansetron HCl 4 mg Q4HP PRN IV 07/07/25 20:00 07/07/25 21:02 4 MG Acetaminophen 650 mg Q6HP PRN PO 07/07/25 20:00 Morphine Sulfate 2 mg Q6HPRN PRN IV 07/07/25 20:00 Nystatin 5 ml QID MT 07/08/25 18:00 UNV Examination: GENERAL:Normal, HEENT:Normal, NECK:Normal, LUNGS:Normal, CVS:Normal, ABDOMEN:Normal, MSK:Normal, SKIN:Normal, NEURO:Normal, :Normal laboratory and microbiology Laboratory Tests 07/08/25 05:32 Test 07/08/25 05:32 Range/Units Serum Glucose 69 L 74-106 mg/dL Problem List/Assessment/Plan Problem List/Assessment/Plan #1 abd pain/dysphagia: gi eval #2 oral thrush: nystatin #3 dm: ssi #4 htn #5 obesity #6 uti: culture, iv rocephin advance care planning- full code- time spent 19 mins unstable for transfer Plan discussed with: Patient My Orders My Orders Orders - THIEN LEON MD Procedure Category Date Status Time Nystatin PHA 07/08/25 Transmitted (Mouth-Throat) 18:00 Nystatin PHA 07/08/25 Transmitted (Mouth-Throat) 13:00 Fluconazole Ivpb PHA 07/09/25 Transmitted Diflucan 10:00 Fluconazole Ivpb PHA 07/08/25 Transmitted Diflucan 13:00 D5 1/2 Ns Potassium PHA 07/08/25 Transmitted 20meq 13:00 Potassium Effervesent PHA 07/08/25 Transmitted Tab (Klor-Con/Ef) 13:00 Basic Metabolic Panel LAB 07/09/25 Verified 06:00 Complete Blood Count LAB 07/09/25 Verified 06:00 Magnesium LAB 07/09/25 Verified 05:00 Hemoglobin A1c LAB 07/09/25 Verified 06:00 Chest Portable XY 07/08/25 Transmitted 13:00 Urine Bacterial ROGER 07/08/25 Verified Culture 13:04 Ceftriaxone Ivpb PHA 07/09/25 Verified Rocephin 09:00 Ceftriaxone Ivpb PHA 07/08/25 Verified Rocephin 13:15 Date of Service: Jul 08, 2025 Billing Provider: THIEN LEON MD Common Visit Codes: [id number] INP/OBS CARE(HIGH) Secondary Visit Codes: [id number] CARE PLAN 30 MINUTES THIEN LEON MD Jul 08, 2025 13:07
--- NOTE | 2025-07-08 13:15 | DVHINCON2 ---
GI Consult Consult Note GI consult note Date of Consultation: 07/08/2025 Chief Complaint: Abdominal pain Referring Physician: Dank MENDOZA H&P: 85-year-old female admitted with complains of abdominal pain, for the past one month, also has complains of decreased appetite and nausea vomiting. Symptoms started when patient was taking Ozempic 05/26/2025, patient has stopped taking this medication 06/15/2025. Admits to slightly improved abdominal pain at this time. No EGD in past. Past Medical History: Diabetes mellitus, GERD, dyslipidemia, hypertension, AFib Past Surgical History: Tonsillectomy, bilateral hip surgery Social History: NO smoking, drinking ETOH and use of illegal drugs. Family History: Noncontributory Review of Systems: Constitutional: no fever, chill, weight loss HEENT: no eye pain, no hearing loss, no oral lesion, no scleral icterus Heart: no chest pain, no chest pressure Lung: no cough, no dyspnea with exertion Abdomen: see HPI Physical exam: General: NAD, AAOX3 Chest: lung goldberg clear to auscultation Heart: RRR, no murmur Abdomen: non-distended, no tenderness to palpation, +BS Labs: Labs Test 07/08/25 10:45 07/08/25 05:32 07/07/25 17:00 07/07/25 16:38 Range/Units POC Glucose 79 70-106 mg/dl White Blood Count 4.7 4.4-10.8 10^3/uL Red Blood Count 3.84 L 4.0-5.20 10^6/uL Hemoglobin 12.5 12.2-16.2 g/dL Hematocrit 36.8 36.0-46.0 % Mean Corpuscular Volume 95.9 80.0-100.0 fL Mean Corpuscular Hemoglobin 32.7 H 28.0-32.0 pg Mean Corpuscular Hemoglobin Concent 34.1 32.0-36.0 g/dL Red Cell Distribution Width 16.0 H 11.8-14.3 % Platelet Count 200 140-450 10^3/uL Mean Platelet Volume 9.2 6.9-10.8 fL Neutrophils (%) (Auto) 58.2 37.0-80.0 % Lymphocytes (%) (Auto) 25.8 10.0-50.0 % Monocytes (%) (Auto) 14.5 H 0.0-12.0 % Eosinophils (%) (Auto) 1.1 0.0-7.0 % Basophils (%) (Auto) 0.4 0.0-2.0 % Neutrophils # (Auto) 2.7 1.6-8.6 10 ^3/uL Lymphocytes # (Auto) 1.2 0.4-5.4 10 ^3/uL Monocytes # (Auto) 0.7 0-1.3 10 ^3/uL Eosinophils # (Auto) 0.1 0-0.8 10 ^3/uL Basophils # (Auto) 0 0-0.2 10 ^3/uL Nucleated Red Blood Cells 0.1 % Sodium Level 144 136-145 mmol/L Potassium Level 3.1 L 3.5-5.1 mmol/L Chloride Level 108 H 98-107 mmol/L Carbon Dioxide Level 21 20-31 mmol/L Anion Gap 15 5-15 Blood Urea Nitrogen < 5 L 9-23 mg/dL Creatinine 0.73 0.550-1.02 mg/dL Glomerular Filtration Rate Calc 82 >90 mL/min BUN/Creatinine Ratio 6.8 L 10.0-20.0 Serum Glucose 69 L 74-106 mg/dL Calcium Level 8.9 8.7-10.4 mg/dL Urine Color Light-orange Yellow Urine Clarity Turbid H Clear Urine pH 6.0 5.0-9.0 Urine Specific [place] 1.018 1.001-1.035 Urine Protein Trace H Negative Urine Ketones 4+ H Negative Urine Blood Negative Negative /uL Urine Nitrite 2+ H Negative Urine Bilirubin Negative Negative Urine Urobilinogen Normal Negative mg/dL Urine Leukocyte Esterase 3+ Negative /uL Urine RBC 3 0 - 4 /hpf Urine Microscopic WBC 147 H 0-5 /HPF Urine Squamous Epithelial Cells Few <5 /hpf Urine Bacteria Few H None Seen /hpf Urine Mucus Few None Seen Urine Glucose Normal Normal mg/dL Total Bilirubin 0.4 0.2-1.0 mg/dL Aspartate Amino Transferase (AST) 15 13-40 U/L Alanine Aminotransferase (ALT) < 9 7-40 U/L Alkaline Phosphatase 50 46-116 U/L Total Protein 5.6 L 5.7-8.2 g/dL Albumin 3.3 3.2-4.8 g/dL Lipase 44 12-53 U/L Imaging: CT abdomen pelvis IMPRESSION: Limited evaluation of the intrapelvic structures due to streak artifact from b ilateral hip prosthesis. No evidence of acute abdominopelvic abnormalities. Colonic diverticulosis without diverticulitis. Assessment: Abdominal pain Nausea and vomiting possible secondary to Ozempic use UTI Plan: Discussed with Dr. Dalton - Pt will be scheduled for an EGD today 07/08/2025. Pt was informed of the risks (bleeding, infection, perforation, reaction to sedation medications and cardiopulmonary arrest) and benefit and is agreeable to undergo the procedures. Patient refused endoscopy at this time Protonix and Zofran Full liquid diet Recommend extreme caution with Ozempic use in future We will continue to monitor patient Plan discussed with patient and RN Thank you for this consult Date of Service: Jul 08, 2025 Billing Provider: PATSY DEAL Common Visit Codes: CONSULT ONLY Consultation Codes: [id number] CONSULT <60MIN PATSY DEAL Jul 08, 2025 13:15
--- NOTE | 2025-07-08 13:52 | DVH ---
EXAM: XY CHEST PORTABLE Indication: HTN Technique: Single frontal view of the chest was obtained Comparison: XY CHEST XRAY 1 VIEW on DOS: 01/03/25 FINDINGS: Lines and Tubes: None Lungs: No focal consolidation. Pleura: No effusion. No pneumothorax. Cardiomediastinal contours: Unremarkable. Atherosclerotic vascular calcifications of the thoracic ao rta are noted. Bones: No acute osseous abnormality. IMPRESSION: No acute cardiopulmonary disease.
[2025-07-08] MEDS: PANTOPRAZOLE 40 MG/10 ML VIAL INJ IV SCH (14:22)
[2025-07-08] MEDS: NYSTATIN (MOUTH-THROAT) 500,000 UNITS/5 ML SUSP MT ONE (14:22)
[2025-07-08] MEDS: POTASSIUM EFFERVESENT TAB 25 MEQ PO ONE (14:23)
[2025-07-08] MEDS: FLUCONAZOLE 200MG/100ML 100 ML IV ONE (14:59)
[2025-07-08] MEDS: D5W/SOD CHL 0.45%/KCL 20MEQ 1,000 ML IV SCH (15:48)
[2025-07-08] MEDS: NYSTATIN (MOUTH-THROAT) 500,000 UNITS/5 ML SUSP MT SCH (18:00)
[2025-07-08 18:05] VITALS: BP 135/84; PULSE 96; RESP 18; TEMP 97.8; O2SAT 95
[2025-07-08 20:00] VITALS: RESP 18; O2SAT 98
[2025-07-08 21:00] VITALS: BP 116/68; PULSE 84; RESP 16; TEMP 98.7; O2SAT 92
[2025-07-09] VITALS (7 sets, daily range): BP systolic 98–144; BP diastolic 60–82; PULSE 68–94; RESP 14–20; TEMP 97.6–98.5; O2SAT 95–98
[2025-07-09 07:27] LABS: Potassium 3.8 mmol/L (3.5-5.1); Sodium 145 mmol/L (136-145)
[2025-07-09 07:28] LABS: Anion Gap 12 (5-15); Carbon Dioxide 26 mmol/L (20-31)
[2025-07-09 07:29] LABS: Calcium 9.3 mg/dL (8.7-10.4)
[2025-07-09 07:30] LABS: Chloride 107 mmol/L (98-107)
[2025-07-09 07:33] LABS: Glucose 74 mg/dL (74-106)
[2025-07-09 07:34] LABS: Hematocrit 38.5 % (36.0-46.0); Hemoglobin 13.0 g/dL (12.2-16.2); Mean Corpuscular Hemoglobin 32.5 pg (28.0-32.0); Mean Corpuscular Volume 96.2 fL (80.0-100.0); Nucleated Red Blood Cells % 0.0 %
[2025-07-09 07:41] LABS: BUN/Creatinine Ratio 7.0 (10.0-20.0); Blood Urea Nitrogen < 5 mg/dL (9-23); Magnesium 1.3 mg/dL (1.6-2.6)
[2025-07-09] MEDS: FLUCONAZOLE 200MG/100ML 100 ML IV SCH (10:32)
--- NOTE | 2025-07-09 10:39 | DVHDS2 ---
Discharge Summary Date of Admission Jul 07, 2025 at 19:56 Date of Discharge: Jul 09, 2025 Labs/Diagnostic Data: Laboratory Results Test 07/09/25 06:08 07/09/25 06:03 07/07/25 17:00 07/07/25 16:38 White Blood Count 4.7 10^3/uL (4.4-10.8) Red Blood Count 4.00 10^6/uL (4.0-5.20) Hemoglobin 13.0 g/dL (12.2-16.2) Hematocrit 38.5 % (36.0-46.0) Mean Corpuscular Volume 96.2 fL (80.0-100.0) Mean Corpuscular Hemoglobin 32.5 pg (28.0-32.0) Mean Corpuscular Hemoglobin Concent 33.8 g/dL (32.0-36.0) Red Cell Distribution Width 16.4 % (11.8-14.3) Platelet Count 211 10^3/uL (140-450) Mean Platelet Volume 9.5 fL (6.9-10.8) Neutrophils (%) (Auto) 58.3 % (37.0-80.0) Lymphocytes (%) (Auto) 26.8 % (10.0-50.0) Monocytes (%) (Auto) 12.4 % (0.0-12.0) Eosinophils (%) (Auto) 2.1 % (0.0-7.0) Basophils (%) (Auto) 0.4 % (0.0-2.0) Neutrophils # (Auto) 2.7 10 ^3/uL (1.6-8.6) Lymphocytes # (Auto) 1.3 10 ^3/uL (0.4-5.4) Monocytes # (Auto) 0.6 10 ^3/uL (0-1.3) Eosinophils # (Auto) 0.1 10 ^3/uL (0-0.8) Basophils # (Auto) 0 10 ^3/uL (0-0.2) Nucleated Red Blood Cells 0.0 % Sodium Level 145 mmol/L (136-145) Potassium Level 3.8 mmol/L (3.5-5.1) Chloride Level 107 mmol/L (98-107) Carbon Dioxide Level 26 mmol/L (20-31) Anion Gap 12 (5-15) Blood Urea Nitrogen < 5 mg/dL (9-23) Creatinine 0.71 mg/dL (0.550-1.02) Glomerular Filtration Rate Calc 84 mL/min (>90) BUN/Creatinine Ratio 7.0 (10.0-20.0) Serum Glucose 74 mg/dL (74-106) Hemoglobin A1c 5.0 % A1C (<5.7) Calcium Level 9.3 mg/dL (8.7-10.4) Magnesium Level 1.3 mg/dL (1.6-2.6) Thyroid Stimulating Hormone (TSH) 3.26 uIU/mL (0.55-4.78) POC Glucose 84 mg/dl (70-106) Urine Color Light-orange (Yellow) Urine Clarity Turbid (Clear) Urine pH 6.0 (5.0-9.0) Urine Specific [place] 1.018 (1.001-1.035) Urine Protein Trace (Negative) Urine Ketones 4+ (Negative) Urine Blood Negative /uL (Negative) Urine Nitrite 2+ (Negative) Urine Bilirubin Negative (Negative) Urine Urobilinogen Normal mg/dL (Negative) Urine Leukocyte Esterase 3+ /uL (Negative) Urine RBC 3 /hpf (0 - 4) Urine Microscopic WBC 147 /HPF (0-5) Urine Squamous Epithelial Cells Few /hpf (<5) Urine Bacteria Few /hpf (None Seen) Urine Mucus Few (None Seen) Urine Glucose Normal mg/dL (Normal) Total Bilirubin 0.4 mg/dL (0.2-1.0) Aspartate Amino Transferase (AST) 15 U/L (13-40) Alanine Aminotransferase (ALT) < 9 U/L (7-40) Alkaline Phosphatase 50 U/L (46-116) Total Protein 5.6 g/dL (5.7-8.2) Albumin 3.3 g/dL (3.2-4.8) Lipase 44 U/L (12-53) Other Laboratory Tests 07/09/25 06:08 Brief Hx & Hospital Course: see dictated note Condition at Discharge: Fair Final Diagnosis/Problems List abd pain Discharge Disposition: Acute Care Facility Discharge Instruct/Medications Diet: Regular Activity: No Restrictions, As Tolerated Follow Up/Referral: fu with pcp in 1wk Medications: per dec Discharge Statement: "Patient was advised to return to the ER or call 911 if any headaches, dizziness, shortness of breath, chest pain, abdominal pain, bleeding, fevers, or worsening of medical condition. Patient was counseled about treatment plan, medications, possible side effects, patientverbalized understanding. All questions were answered to the best of my ability. This discharge took greater then 30 minutes in planning, reviewing documentation, counseling the patient, and discussing with other team members." ASSESSMENT ASSESSMENT Assessment abd pain Date of Service: Jul 09, 2025 Billing Provider: THIEN LEON MD Common Visit Codes: [id number]/[id number] DISCH DAY >30min THIEN LEON MD Jul 09, 2025 10:39
[2025-07-09] MEDS: ACETAMINOPHEN 325 MG TAB PO PRN (12:52)
--- NOTE | 2025-07-09 13:39 | DVHPN2 ---
Subjective Still having same symptoms Patient has nausea. No vomiting Patient is still complains of poor appetite Patient was on Ozempic DC med on 06/15/2025 Changes from previous H/P or p: No Changes Objective Vitals Vital Signs Date Time Temp Pulse Resp B/P (MAP) Pulse Ox O2 Delivery O2 Flow Rate FiO2 07/09/25 13:00 97.6 86 14 101/72 (82) 98 97.6 07/08/25 20:00 Room Air* 0 21 Intake/Output Intake and Output 07/09/25 07:00 Intake Total 1365 ml Output Total 1075 ml Balance 290 ml Intake Oral 500 ml IV Total 865 ml Output Urine Total 1075 ml General Appearance: Alert, Oriented X3 Lungs: Clear to auscultation Cardiovascular: Regular rate Abdomen: Normal bowel sounds, Soft Medications Current Medications Medications Dose Ordered Sig/Estelle Route Start Time Stop Time Status Last Admin Dose Admin Pantoprazole Sodium 40 mg DAILY IV 07/08/25 10:00 07/09/25 10:32 40 MG Diagnostic Test (Pha) 1 strip Q6HR 07/08/25 00:00 07/09/25 12:00 1 STRIP Insulin Human Regular Q6HR SC 07/08/25 00:00 Dextrose 50 ml UD PRN IV 07/07/25 20:00 Acetaminophen/ Hydrocodone Bitart 1 tab Q4HP PRN PO 07/07/25 20:00 Ondansetron HCl 4 mg Q4HP PRN IV 07/07/25 20:00 07/07/25 21:02 4 MG Acetaminophen 650 mg Q6HP PRN PO 07/07/25 20:00 07/09/25 12:52 650 MG Morphine Sulfate 2 mg Q6HPRN PRN IV 07/07/25 20:00 Nystatin 5 ml QID MT 07/08/25 18:00 07/09/25 12:38 5 ML Fluconazole 100 ml @ 100 mls/hr DAILY IV 07/09/25 10:00 07/09/25 10:32 100 MLS/HR Potassium Chloride/Dextrose/ Sod Cl 1,000 ml @ 75 mls/hr [id number] IV 07/08/25 13:00 07/08/25 15:48 75 MLS/HR Ceftriaxone Sodium 50 ml @ 100 mls/hr DAILY@09 IV 07/09/25 09:00 07/09/25 10:32 100 MLS/HR Laboratory Results Laboratory Tests 07/09/25 06:08 Chemistry Test 07/09/25 06:08 Calcium Level 9.3 mg/dL (8.7-10.4) Magnesium Level 1.3 mg/dL (1.6-2.6) L Coagulation Test 07/09/25 13:15 Prothrombin Time Pending Prothrombin Time INR Pending HgA1c, TSH Test 07/09/25 06:08 Hemoglobin A1c 5.0 % A1C (<5.7) Thyroid Stimulating Hormone (TSH) 3.26 uIU/mL (0.55-4.78) Urinalysis Test 07/07/25 17:00 Urine Color Light-orange (Yellow) Urine Clarity Turbid (Clear) H Urine pH 6.0 (5.0-9.0) Urine Specific [place] 1.018 (1.001-1.035) Urine Protein Trace (Negative) H Urine Ketones 4+ (Negative) H Urine Blood Negative /uL (Negative) Urine Nitrite 2+ (Negative) H Urine Bilirubin Negative (Negative) Urine Urobilinogen Normal mg/dL (Negative) Urine Leukocyte Esterase 3+ /uL (Negative) Urine RBC 3 /hpf (0 - 4) Urine Microscopic WBC 147 /HPF (0-5) H Urine Squamous Epithelial Cells Few /hpf (<5) Urine Bacteria Few /hpf (None Seen) H Urine Mucus Few (None Seen) Urine Glucose Normal mg/dL (Normal) Microbiology Microbiology Date/Time Source Procedure Growth Status 07/07/25 17:00 Voided Urine Urine Culture - Preliminary Resulted Labs and/or images reviewed: Labs reviewed by me, Image(s) reviewed by me Assessment/Plan Assessment/Plan Abdominal pain Nausea and vomiting possible secondary to Ozempic use UTI Plan: Discussed with Dr. Dalton Schedule patient for endoscopy with biopsy 07/10/2025., discussed risk. Discussed risks, benefits and alternatives of procedure and sedation, patient understands and agrees NPO after midnight Plan discussed with: Patient, Other (RN) My Orders Orders - PATSY DEAL Procedure Category Date Status Time Prothrombin Time W/ LAB 07/09/25 In Process INR 13:00 Obtain Consent For: ORDERS 07/09/25 Transmitted 13:00 Npo (Nothing By DIET 07/09/25 Transmitted Mouth) Diet Dinner Obtain Consent For MATHEUS 07/09/25 In Process Anesthesia 13:00 Date of Service: Jul 09, 2025 Billing Provider: PATSY DEAL Common Visit Codes: [id number] INP/OBS CARE(HIGH) PATSY DEAL Jul 09, 2025 13:39
[2025-07-09 13:47] LABS: INR 1.12 (0.9-1.15); Prothrombin Time 11.7 sec (9.3-11.8)
--- NOTE | 2025-07-09 20:34 | DVHDS ---
DATE OF DISCHARGE: 07/09/2025 DATE OF TRANSFER: 07/09/2025 HISTORY OF PRESENT ILLNESS: The patient is an 85-year-old lady who is admitted with history of decreased appetite, nausea, and diffuse abdominal pain. The patient has history of diabetes, GERD, atrial fibrillation, hyperlipidemia, and hypertension. HOSPITAL COURSE: The patient had a CT of abdomen and pelvis that showed no acute abnormality. The patient had evidence of oral thrush. The patient continues to have symptoms of dysphagia and abdominal pain. She was offered an upper endoscopy, which she has currently not agreed to. The patient will now be transferred to [place] for further management. FINAL DIAGNOSES: * Abdominal pain with dysphagia. * Oral thrush. * Diabetes mellitus. * Hypertension. * Obesity. * UTI. Time spent in discharge planning and review of plan with the patient and nursing and paper work was 39 minutes. MD TREVOR Miles/ETTA TID: [id number] RECEIPT: [id number]
[2025-07-09] MEDS: HYDROcodone-ACET 5/325MG TAB PO PRN (23:13)
[2025-07-10] VITALS (9 sets, daily range): BP systolic 53–139; BP diastolic 36–79; PULSE 60–102; RESP 14–19; TEMP 96.2–98.8; O2SAT 90–99
[2025-07-10] MEDS: MIDODRINE HCL 10 MG TAB PO SCH (04:17)
--- NOTE | 2025-07-10 11:48 | DVHPN2 ---
Subjective Patient continues to report having difficulty swallowing as well as abdominal pain. Reviewed: Care Plan, H&P, Labs, Medications Changes from previous H/P or p: No Changes General: Per HPI Objective Vitals Vital Signs Date Time Temp Pulse Resp B/P (MAP) Pulse Ox O2 Delivery O2 Flow Rate FiO2 07/10/25 09:00 96.6 60 16 139/79 (99) 97 96.6 07/10/25 08:00 Room Air* 0 21 Intake/Output Intake and Output 07/10/25 07:00 Intake Total 1165 ml Output Total 600 ml Balance 565 ml Intake Oral 740 ml IV Total 425 ml Output Urine Total 600 ml General Appearance: Alert, Oriented X3 Lungs: Clear to auscultation Cardiovascular: Regular rate Abdomen: Normal bowel sounds, Soft Skin: Dry, Intact Medications Current Medications Medications Dose Ordered Sig/Estelle Route Start Time Stop Time Status Last Admin Dose Admin Pantoprazole Sodium 40 mg DAILY IV 07/08/25 10:00 07/10/25 08:52 40 MG Diagnostic Test (Pha) 1 strip Q6HR 07/08/25 00:00 07/10/25 06:00 1 STRIP Insulin Human Regular Q6HR SC 07/08/25 00:00 Dextrose 50 ml UD PRN IV 07/07/25 20:00 Acetaminophen/ Hydrocodone Bitart 1 tab Q4HP PRN PO 07/07/25 20:00 07/09/25 23:13 1 TAB Ondansetron HCl 4 mg Q4HP PRN IV 07/07/25 20:00 07/07/25 21:02 4 MG Acetaminophen 650 mg Q6HP PRN PO 07/07/25 20:00 07/09/25 12:52 650 MG Morphine Sulfate 2 mg Q6HPRN PRN IV 07/07/25 20:00 Nystatin 5 ml QID MT 07/08/25 18:00 07/09/25 21:12 5 ML Fluconazole 100 ml @ 100 mls/hr DAILY IV 07/09/25 10:00 07/10/25 08:51 100 MLS/HR Potassium Chloride/Dextrose/ Sod Cl 1,000 ml @ 75 mls/hr [id number] IV 07/08/25 13:00 07/09/25 15:40 75 MLS/HR Ceftriaxone Sodium 50 ml @ 100 mls/hr DAILY@09 IV 07/09/25 09:00 07/10/25 08:51 100 MLS/HR Midodrine 10 mg TID PO 07/10/25 06:00 07/10/25 04:17 10 MG Laboratory Results Laboratory Tests 07/09/25 06:08 Coagulation Test 07/09/25 13:15 Prothrombin Time 11.7 sec (9.3-11.8) Prothrombin Time INR 1.12 (0.9-1.15) Urinalysis Test 07/07/25 17:00 Urine Color Light-orange (Yellow) Urine Clarity Turbid (Clear) H Urine pH 6.0 (5.0-9.0) Urine Specific [place] 1.018 (1.001-1.035) Urine Protein Trace (Negative) H Urine Ketones 4+ (Negative) H Urine Blood Negative /uL (Negative) Urine Nitrite 2+ (Negative) H Urine Bilirubin Negative (Negative) Urine Urobilinogen Normal mg/dL (Negative) Urine Leukocyte Esterase 3+ /uL (Negative) Urine RBC 3 /hpf (0 - 4) Urine Microscopic WBC 147 /HPF (0-5) H Urine Squamous Epithelial Cells Few /hpf (<5) Urine Bacteria Few /hpf (None Seen) H Urine Mucus Few (None Seen) Urine Glucose Normal mg/dL (Normal) Microbiology Microbiology Date/Time Source Procedure Growth Status 07/07/25 17:00 Voided Urine Urine Culture - Final Escherichia coli Complete Labs and/or images reviewed: Labs reviewed by me, Image(s) reviewed by me Assessment/Plan Assessment/Plan Impression: -abdominal pain with a aphasia -oral Suzan -diabetes mellitus -primary hypertension -Obesity -constipation -complicated cystitis -hypokalemia Plan: -continue oral nystatin, Diflucan, Rocephin for UTI -regular insulin sliding scale -KUB -physical therapy: Patient reports that she has not ambulating in two weeks prior to coming in the hospital -continue hypertensives -GI consultation: Plans for EGD today -continue IV fluids -social service consultation for possible placement in [facility] facility. Total time spent with patient discussing and formulating plan of care: 35 minutes. This medical document was created using an electronic medical record system with [employer] system. Although this document has been carefully reviewed, there may still be some phonetic and typographical errors. These areas are purely typographical due to imperfections of the software programs, and do not reflect any compromise in the patient's medical care. Plan discussed with: Patient, Other (RN) My Orders Orders - JAYLIN ART NP Procedure Category Date Status Time Kub Abdomen Single XY 07/10/25 Logged View 11:43 Pt Request For Service PT 07/10/25 Logged 11:43 Basic Metabolic Panel LAB 07/11/25 Verified 04:00 Lactulose Oral PHA 07/10/25 Transmitted 22:00 Date of Service: Jul 10, 2025 Billing Provider: JAYLIN ART NP Common Visit Codes: [id number] INP/OBS CARE(HIGH) JAYLIN ART NP Jul 10, 2025 11:48
[2025-07-10] MEDS ORDERED: MORPHINE SULFATE INJ 2 MG/ml SYRG IV PRN (12:15)
[2025-07-10] MEDS ORDERED: MORPHINE SULFATE 4 MG/ML SYR/VIAL IV PRN (12:15)
[2025-07-10] MEDS: ACCU-CHEK COMFORT CURVE STRIP VI ONE (12:15)
[2025-07-10] MEDS ORDERED: KETOROLAC TROMETH 30 MG/ML 1ML VIAL IV ONE (12:15)
[2025-07-10] MEDS ORDERED: HYDROmorphone HCL 2 MG/ML VL/or syr IV PRN ×2 (12:15)
[2025-07-10] MEDS ORDERED: METOCLOPRAMIDE HCL 5MG/ml INJ 2ml VIAL IV PRN (12:15)
[2025-07-10] MEDS ORDERED: ONDANSETRON HCL 4 MG/2 ML VIAL ONE (12:19)
[2025-07-10] MEDS ORDERED: MIDAZOLAM HCL 2MG/2ML 2ml VIAL (1mg/ml) ONE (12:19)
[2025-07-10] MEDS ORDERED: KETAMINE 50mg/ML 1ml syringe ONE (12:19)
[2025-07-10] MEDS ORDERED: SODIUM CHLORIDE LOCK 10 ML ONE (12:19)
[2025-07-10] MEDS ORDERED: PROPOFOL 10 MG/ML 20 ML IV ONE (12:19)
[2025-07-10] MEDS ORDERED: fentaNYL CITRATE 100 MCG/2 ML VL ONE (12:19)
--- NOTE | 2025-07-10 13:01 | DVHOP2 ---
Operative Report DATE OF OPERATION: 07/10/25 PROCEDURE: Upper Endoscopy with biopsy. PREOPERATIVE INDICATION: The patient is a 85 -year-old female undergoing endoscopy for abdominal pain POSTOPERATIVE DIAGNOSES: 1. 2 cm sliding-type hiatal hernia with slightly irregular squamocolumnar junction no significant erosive esophagitis 2. Mild gastroduodenitis with hyperemia erythema PROCEDURE PERFORMED BY: Nicola Dalton GI NURSE: Maryann SCOPE: Olympus videoendoscope. ASA CLASS: 3 PREOPERATIVE MEDICATIONS: Dr. Bradly Larson PROCEDURE IN DETAIL: After obtaining an informed consent, the patient was placed on left lateral decubitus position. The patient was then sedated with the above medications. A bite block was placed between her teeth. The endoscope was then passed through the oropharynx, into the esophagus, and through the stomach and pylorus up to the second and third part of the duodenum. The endoscope was then withdrawn. Second and 3rd part of the duodenum were normal and the duodenal bulb showed mild duodenitis Duodenal biopsies were obtained The pre-pyloric area antrum and body showed mild gastritis with some hyperemia erythema and mild gastropathy on retroflexion in the proximal stomach Gastric biopsies were obtained. The endoscope was then withdrawn into the distal esophagus. Patient had a 2 cm hiatal hernia with no significant erosive esophagitis The remaining distal and proximal esophagus and oropharynx were unremarkable. The patient tolerated the procedure well without difficulty. COMPLICATIONS : None SPECIMENS: Duodenal Biopsies Gastric biopsies DISPOSITION: Stable D/C to home PLAN: 1. Await for biopsy result 2. Will place pt on Protonix 40 mg p.o. daily 3. Carafate suspension 1 g p.o. twice a day 4. Resume soft mechanical diet advance as tolerated 5. DC aspirin NSAIDs smoking alcohol 6. Outpatient follow up with me in 4-6 weeks to review results and discuss further management NICOLA DALTON MD Jul 10, 2025 13:01
--- NOTE | 2025-07-10 16:45 | DVH ---
Date: 07/10/2025 04:01 PM Examination: XY KUB ABDOMEN SINGLE VIEW History: abdominal pain, constipation Comparison: None TECHNIQUE: Frontal views of the abdomen was obtained. FINDINGS: Bowel gas pattern is unremarkable. The lung bases are unremarkable. Cortical irregularity greater tuberosity right humerus age indeterminate. Bilateral hip replacements. IMPRESSION: 1. Nonobstructive bowel gas pattern. 2. Cortical irregularity greater tuberosity right proximal femur. Visualized on prior CT abdomen pelv is 07/07/2025. 3. Bilateral hip replacements present
[2025-07-10] MEDS: LACTULOSE 20Gm/30ML SOLN PO SCH (21:33)
[2025-07-11] VITALS (8 sets, daily range): BP systolic 107–129; BP diastolic 57–113; PULSE 67–85; RESP 16–18; TEMP 96.6–98.4; O2SAT 93–98
[2025-07-11 08:13] LABS: Anion Gap 11 (5-15); Carbon Dioxide 21 mmol/L (20-31); Sodium 140 mmol/L (136-145)
[2025-07-11 08:15] LABS: Chloride 108 mmol/L (98-107); Potassium 3.4 mmol/L (3.5-5.1)
[2025-07-11 08:16] LABS: Calcium 9.2 mg/dL (8.7-10.4)
[2025-07-11 08:21] LABS: BUN/Creatinine Ratio 7.7 (10.0-20.0); Blood Urea Nitrogen < 5 mg/dL (9-23); Glucose 139 mg/dL (74-106)
--- NOTE | 2025-07-11 13:27 | DVHPN2 ---
Subjective Patient continues to report having difficulty swallowing as well as abdominal pain. Reviewed: Care Plan, H&P, Labs, Medications Changes from previous H/P or p: No Changes General: Per HPI Objective Vitals Vital Signs Date Time Temp Pulse Resp B/P (MAP) Pulse Ox O2 Delivery O2 Flow Rate FiO2 07/11/25 12:51 96.6 85 18 129/78 (95) 96 96.6 07/10/25 20:00 Room Air* 0 21 Intake/Output Intake and Output 07/11/25 07:00 Intake Total 760 ml Output Total 1100 ml Balance -340 ml Intake Oral 450 ml IV Total 310 ml Output Urine Total 1100 ml General Appearance: Alert, Oriented X3 HEENT: Other (Oral Suzan) Lungs: Clear to auscultation Cardiovascular: Regular rate Abdomen: Normal bowel sounds, Soft Skin: Dry, Intact Medications Current Medications Medications Dose Ordered Sig/Estelle Route Start Time Stop Time Status Last Admin Dose Admin Pantoprazole Sodium 40 mg DAILY IV 07/08/25 10:00 07/11/25 10:16 40 MG Diagnostic Test (Pha) 1 strip Q6HR 07/08/25 00:00 07/11/25 12:08 1 STRIP Insulin Human Regular Q6HR SC 07/08/25 00:00 Dextrose 50 ml UD PRN IV 07/07/25 20:00 Acetaminophen/ Hydrocodone Bitart 1 tab Q4HP PRN PO 07/07/25 20:00 07/09/25 23:13 1 TAB Ondansetron HCl 4 mg Q4HP PRN IV 07/07/25 20:00 07/07/25 21:02 4 MG Acetaminophen 650 mg Q6HP PRN PO 07/07/25 20:00 07/09/25 12:52 650 MG Morphine Sulfate 2 mg Q6HPRN PRN IV 07/07/25 20:00 Nystatin 5 ml QID MT 07/08/25 18:00 07/11/25 12:08 5 ML Fluconazole 100 ml @ 100 mls/hr DAILY IV 07/09/25 10:00 07/11/25 10:16 100 MLS/HR Potassium Chloride/Dextrose/ Sod Cl 1,000 ml @ 75 mls/hr [id number] IV 07/08/25 13:00 07/11/25 05:12 75 MLS/HR Ceftriaxone Sodium 50 ml @ 100 mls/hr DAILY@09 IV 07/09/25 09:00 07/11/25 09:27 100 MLS/HR Midodrine 10 mg TID PO 07/10/25 06:00 07/11/25 06:12 10 MG Lactulose 30 ml BID PO 07/10/25 22:00 07/11/25 10:16 30 ML Laboratory Results Laboratory Tests 07/09/25 06:08 07/11/25 06:42 Chemistry Test 07/11/25 06:42 Calcium Level 9.2 mg/dL (8.7-10.4) Urinalysis Test 07/07/25 17:00 Urine Color Light-orange (Yellow) Urine Clarity Turbid (Clear) H Urine pH 6.0 (5.0-9.0) Urine Specific [place] 1.018 (1.001-1.035) Urine Protein Trace (Negative) H Urine Ketones 4+ (Negative) H Urine Blood Negative /uL (Negative) Urine Nitrite 2+ (Negative) H Urine Bilirubin Negative (Negative) Urine Urobilinogen Normal mg/dL (Negative) Urine Leukocyte Esterase 3+ /uL (Negative) Urine RBC 3 /hpf (0 - 4) Urine Microscopic WBC 147 /HPF (0-5) H Urine Squamous Epithelial Cells Few /hpf (<5) Urine Bacteria Few /hpf (None Seen) H Urine Mucus Few (None Seen) Urine Glucose Normal mg/dL (Normal) Microbiology Microbiology Date/Time Source Procedure Growth Status 07/09/25 08:00 Nose MRSA Screen - Final Complete 07/07/25 17:00 Voided Urine Urine Culture - Final Escherichia coli Complete Labs and/or images reviewed: Labs reviewed by me, Image(s) reviewed by me Assessment/Plan Assessment/Plan Impression: -abdominal pain with a aphasia -oral Suzan -diabetes mellitus -primary hypertension -Obesity -constipation -complicated cystitis -hypokalemia Plan: Events: Patient is status post EGD. Results reviewed. Continues to have poor oral intake ambulated 6 ft with physical therapy. Discussed with the patient transferred to half-way facility. -bowel regimen -physical therapy: Assessment reviewed -continue hypertensives -GI consultation: Plans for EGD today -continue IV fluids -social service consultation. Recommend transferring to half-way facility. Total time spent with patient discussing and formulating plan of care: 35 minutes. This medical document was created using an electronic medical record system with Dragon computerized dictation system. Although this document has been carefully reviewed, there may still be some phonetic and typographical errors. These areas are purely typographical due to imperfections of the software programs, and do not reflect any compromise in the patient's medical care. Plan discussed with: Patient, Other (RN) My Orders Orders - JAYLIN ART NP Procedure Category Date Status Time * Cook Fishing Vessel CONS 07/11/25 Transmitted Consult D5w/Sod Chl 0.45%/Kcl PHA 07/11/25 Logged 20meq 13:30 Date of Service: Jul 11, 2025 Billing Provider: JAYLIN ART NP Common Visit Codes: [id number] INP/OBS CARE(HIGH) JAYLIN ART NP Jul 11, 2025 13:27
[2025-07-11] MEDS: D5W/SOD CHL 0.45%/KCL 20MEQ 1,000 ML IV SCH (14:14)
--- NOTE | 2025-07-11 18:54 | DVHPN2 ---
Progress Note - Dictate Date Seen: Jul 11, 2025 Medical Necessity Reason Pt with a Central, PICC or Fol: No Subjective Continues to have poor oral intake ambulated 6 ft with physical therapy. EGD showed a small hiatal hernia and mild gastroduodenitis There was no stricture or obstruction; no significant esophagitis No bowel movement recorded vital signs Vital Sign Date Time Temp Pulse Resp B/P (MAP) Pulse Ox O2 Delivery O2 Flow Rate FiO2 07/11/25 16:36 97.1 73 18 113/113 (113) 97 97.1 07/11/25 08:00 Room Air* 0 21 Total Intake and Output 07/10/25 07/10/25 07/11/25 14:59 22:59 06:59 Intake Total 160 ml 200 ml 400 ml Output Total 550 ml 550 ml Balance 160 ml -350 ml -150 ml medications Current Medications Medications Dose Ordered Sig/Estelle Route Start Time Stop Time Status Last Admin Dose Admin Pantoprazole Sodium 40 mg DAILY IV 07/08/25 10:00 07/11/25 10:16 40 MG Diagnostic Test (Pha) 1 strip Q6HR 07/08/25 00:00 07/11/25 18:02 1 STRIP Insulin Human Regular Q6HR SC 07/08/25 00:00 Dextrose 50 ml UD PRN IV 07/07/25 20:00 Acetaminophen/ Hydrocodone Bitart 1 tab Q4HP PRN PO 07/07/25 20:00 07/09/25 23:13 1 TAB Ondansetron HCl 4 mg Q4HP PRN IV 07/07/25 20:00 07/07/25 21:02 4 MG Acetaminophen 650 mg Q6HP PRN PO 07/07/25 20:00 07/09/25 12:52 650 MG Morphine Sulfate 2 mg Q6HPRN PRN IV 07/07/25 20:00 Nystatin 5 ml QID MT 07/08/25 18:00 07/11/25 18:01 5 ML Fluconazole 100 ml @ 100 mls/hr DAILY IV 07/09/25 10:00 07/11/25 10:16 100 MLS/HR Ceftriaxone Sodium 50 ml @ 100 mls/hr DAILY@09 IV 07/09/25 09:00 07/11/25 09:27 100 MLS/HR Midodrine 10 mg TID PO 07/10/25 06:00 07/11/25 14:13 10 MG Lactulose 30 ml BID PO 07/10/25 22:00 07/11/25 10:16 30 ML Potassium Chloride/Dextrose/ Sod Cl 1,000 ml @ 50 mls/hr Q20H IV 07/11/25 13:30 07/11/25 14:14 50 MLS/HR objective General Appearance: Alert, Oriented X3 Lungs: Clear to auscultation Cardiovascular: Regular rate Abdomen: Normal bowel sounds, Soft laboratory and microbiology Laboratory Tests 07/11/25 06:42 07/09/25 06:08 Test 07/11/25 06:42 Range/Units Serum Glucose 139 H 74-106 mg/dL Problems(with codes): (1) Intractable abdominal pain (2) Intractable vomiting (3) Constipation (4) Gastroduodenitis (5) Hiatal hernia Prognosis PLAN Possible transfer to longterm facility. -bowel regimen with lactulose and MiraLax Constipation likely aggravated by Ozempic -physical therapy: Continue -continue hypertensives Plan discussed with: Other (Za [place]) NICOLA LEO MD Jul 11, 2025 18:54
[2025-07-12] VITALS (7 sets, daily range): BP systolic 100–138; BP diastolic 50–68; PULSE 68–98; RESP 16–20; TEMP 97.9–98.5; O2SAT 94–97
--- NOTE | 2025-07-12 09:47 | DVHPN2 ---
Subjective Patient continues to report having difficulty swallowing as well as abdominal pain. Reviewed: Care Plan, H&P, Labs, Medications Changes from previous H/P or p: No Changes General: Per HPI Objective Vitals Vital Signs Date Time Temp Pulse Resp B/P (MAP) Pulse Ox O2 Delivery O2 Flow Rate FiO2 07/12/25 05:00 98.3 78 16 108/50 (69) 97 98.3 07/11/25 20:00 Room Air* 0 21 Intake/Output Intake and Output 07/12/25 07:00 Intake Total 900 ml Output Total 950 ml Balance -50 ml Intake Oral 750 ml IV Total 150 ml Output Urine Total 950 ml # Bowel Movements 1 General Appearance: Alert, Oriented X3, Cooperative, mild distress HEENT: Other (Oral Suzan) Lungs: Clear to auscultation Cardiovascular: Regular rate Abdomen: Normal bowel sounds, Soft Skin: Dry, Intact Medications Current Medications Medications Dose Ordered Sig/Estelle Route Start Time Stop Time Status Last Admin Dose Admin Pantoprazole Sodium 40 mg DAILY IV 07/08/25 10:00 07/11/25 10:16 40 MG Diagnostic Test (Pha) 1 strip Q6HR 07/08/25 00:00 07/12/25 06:00 1 STRIP Insulin Human Regular Q6HR SC 07/08/25 00:00 Dextrose 50 ml UD PRN IV 07/07/25 20:00 Acetaminophen/ Hydrocodone Bitart 1 tab Q4HP PRN PO 07/07/25 20:00 07/12/25 04:48 1 TAB Ondansetron HCl 4 mg Q4HP PRN IV 07/07/25 20:00 07/11/25 21:22 4 MG Acetaminophen 650 mg Q6HP PRN PO 07/07/25 20:00 07/09/25 12:52 650 MG Morphine Sulfate 2 mg Q6HPRN PRN IV 07/07/25 20:00 Nystatin 5 ml QID MT 07/08/25 18:00 07/12/25 06:31 5 ML Midodrine 10 mg TID PO 07/10/25 06:00 07/12/25 06:30 10 MG Lactulose 30 ml BID PO 07/10/25 22:00 07/11/25 21:22 30 ML Potassium Chloride/Dextrose/ Sod Cl 1,000 ml @ 50 mls/hr Q20H IV 07/11/25 13:30 07/11/25 14:14 50 MLS/HR Fluconazole 100 mg DAILY PO 07/12/25 10:00 UNV Ciprofloxacin 500 mg Q12HR PO 07/12/25 10:00 UNV Enteral Nutritional Formula 240 ml TIDWM PO 07/12/25 12:00 UNV Laboratory Results Laboratory Tests 07/09/25 06:08 07/11/25 06:42 Urinalysis Test 07/07/25 17:00 Urine Color Light-orange (Yellow) Urine Clarity Turbid (Clear) H Urine pH 6.0 (5.0-9.0) Urine Specific [place] 1.018 (1.001-1.035) Urine Protein Trace (Negative) H Urine Ketones 4+ (Negative) H Urine Blood Negative /uL (Negative) Urine Nitrite 2+ (Negative) H Urine Bilirubin Negative (Negative) Urine Urobilinogen Normal mg/dL (Negative) Urine Leukocyte Esterase 3+ /uL (Negative) Urine RBC 3 /hpf (0 - 4) Urine Microscopic WBC 147 /HPF (0-5) H Urine Squamous Epithelial Cells Few /hpf (<5) Urine Bacteria Few /hpf (None Seen) H Urine Mucus Few (None Seen) Urine Glucose Normal mg/dL (Normal) Microbiology Microbiology Date/Time Source Procedure Growth Status 07/09/25 08:00 Nose MRSA Screen - Final Complete 07/07/25 17:00 Voided Urine Urine Culture - Final Escherichia coli Complete Labs and/or images reviewed: Labs reviewed by me, Image(s) reviewed by me Assessment/Plan Assessment/Plan Impression: -abdominal pain with a aphasia -oral Suzan -diabetes mellitus -primary hypertension -Obesity -constipation -complicated cystitis -hypokalemia Plan: Events: Still pending [facility] facility transfer -add Glucerna to each meal -change Diflucan and IV Rocephin two p.o. Diflucan and p.o. ciprofloxacin -bowel regimen -physical therapy: Assessment reviewed -continue hypertensives -continue IV fluids -social service consultation. Recommend transferring to [facility] facility. Total time spent with patient discussing and formulating plan of care: 35 minutes. This medical document was created using an electronic medical record system with [employer] system. Although this document has been carefully reviewed, there may still be some phonetic and typographical errors. These areas are purely typographical due to imperfections of the software programs, and do not reflect any compromise in the patient's medical care. Plan discussed with: Patient, Other (RN) My Orders Orders - JAYLIN ART NP Procedure Category Date Status Time * Edge Beader CONS 07/11/25 Transmitted Consult D5w/Sod Chl 0.45%/Kcl PHA 07/11/25 In Process 20meq 13:30 Fluconazole Tablet PHA 07/12/25 Logged (Diflucan Tablet) 10:00 Ciprofloxacin Tablet PHA 07/12/25 Logged (Cipro Tablet) 10:00 Nutritional PHA 07/12/25 Logged Supplements (Glucerna 12:00 Date of Service: Jul 12, 2025 Billing Provider: JAYLIN RAT NP Common Visit Codes: [id number] INP/OBS CARE(HIGH) JAYLIN ART NP Jul 12, 2025 09:47
[2025-07-12] MEDS: CIPROFLOXACIN HCL 500 MG TAB PO SCH (11:43)
[2025-07-12] MEDS: FLUCONAZOLE 100 MG TAB PO SCH (11:44)
[2025-07-12] MEDS: Glucerna Carbsteady SHAKE Vanilla 8oz PO SCH (12:00)
--- NOTE | 2025-07-12 20:45 | DVHPN2 ---
Progress Note - Dictate Date Seen: Jul 12, 2025 Medical Necessity Reason Pt with a Central, PICC or Fol: No Subjective Patient had a small episode of emesis today after she was moved around One bowel movement recorded Continues to have poor oral intake ambulated 6 ft with physical therapy. EGD showed a small hiatal hernia and mild gastroduodenitis There was no stricture or obstruction; no significant esophagitis No bowel movement recorded vital signs Vital Sign Date Time Temp Pulse Resp B/P (MAP) Pulse Ox O2 Delivery O2 Flow Rate FiO2 07/12/25 17:22 98.0 77 18 111/56 (74) 97 98.0 07/12/25 08:00 Room Air* 0 21 Total Intake and Output 07/11/25 07/11/25 07/12/25 15:00 23:00 07:00 Intake Total 150 ml 400 ml 350 ml Output Total 400 ml 550 ml Balance 150 ml 0 ml -200 ml medications Current Medications Medications Dose Ordered Sig/Estelle Route Start Time Stop Time Status Last Admin Dose Admin Pantoprazole Sodium 40 mg DAILY IV 07/08/25 10:00 07/12/25 11:43 40 MG Diagnostic Test (Pha) 1 strip Q6HR 07/08/25 00:00 07/12/25 18:23 1 STRIP Insulin Human Regular Q6HR SC 07/08/25 00:00 Dextrose 50 ml UD PRN IV 07/07/25 20:00 Acetaminophen/ Hydrocodone Bitart 1 tab Q4HP PRN PO 07/07/25 20:00 07/12/25 04:48 1 TAB Ondansetron HCl 4 mg Q4HP PRN IV 07/07/25 20:00 07/11/25 21:22 4 MG Acetaminophen 650 mg Q6HP PRN PO 07/07/25 20:00 07/09/25 12:52 650 MG Morphine Sulfate 2 mg Q6HPRN PRN IV 07/07/25 20:00 Nystatin 5 ml QID MT 07/08/25 18:00 07/12/25 18:23 5 ML Midodrine 10 mg TID PO 07/10/25 06:00 07/12/25 15:08 10 MG Lactulose 30 ml BID PO 07/10/25 22:00 07/12/25 11:43 30 ML Potassium Chloride/Dextrose/ Sod Cl 1,000 ml @ 50 mls/hr Q20H IV 07/11/25 13:30 07/11/25 14:14 50 MLS/HR Fluconazole 100 mg DAILY PO 07/12/25 10:00 07/12/25 11:44 100 MG Ciprofloxacin 500 mg Q12HR PO 07/12/25 10:00 07/12/25 11:43 500 MG Enteral Nutritional Formula 240 ml TIDWM PO 07/12/25 12:00 07/12/25 18:23 240 ML objective General Appearance: Alert, Oriented X3 Lungs: Clear to auscultation Cardiovascular: Regular rate Abdomen: Normal bowel sounds, Soft laboratory and microbiology Laboratory Tests 07/11/25 06:42 07/09/25 06:08 Test 07/11/25 06:42 Range/Units Serum Glucose 139 H 74-106 mg/dL Problems(with codes): (1) Hiatal hernia (2) Constipation (3) Gastroduodenitis (4) Intractable abdominal pain (5) Intractable vomiting (6) UTI (urinary tract infection) Prognosis Plan: Events: Still pending jail facility transfer -add Glucerna to each meal -change Diflucan and IV Rocephin two p.o. Diflucan and p.o. ciprofloxacin -bowel regimen -physical therapy: Assessment reviewed -continue hypertensives -continue IV fluids -social service consultation. Recommend transferring to jail facility. Plan discussed with: Patient NICOLA LEO MD Jul 12, 2025 20:45
[2025-07-13 01:00] VITALS: BP 115/74; PULSE 70; RESP 20; TEMP 98.4; O2SAT 96
[2025-07-13 05:00] VITALS: BP 110/61; PULSE 77; RESP 16; TEMP 98; O2SAT 94
[2025-07-13 09:00] VITALS: BP 118/71; PULSE 73; RESP 20; TEMP 98.6; O2SAT 99
--- NOTE | 2025-07-13 10:42 | DVHPN2 ---
Progress Note Date Seen: Jul 13, 2025 Medical Necessity Reason Pt with a Central, PICC or Fol: No Subjective Patient reports: No new complaints Review of Systems: HEENT:Normal Objective vital signs Vital Sign Date Time Temp Pulse Resp B/P (MAP) Pulse Ox O2 Delivery O2 Flow Rate FiO2 07/13/25 09:00 98.6 73 20 118/71 (87) 99 98.6 07/12/25 20:00 Room Air* 0 21 Total Intake and Output 07/12/25 07/12/25 07/13/25 15:00 23:00 07:00 Intake Total 120 ml 500 ml 1150 ml Output Total 1350 ml Balance 120 ml 500 ml -200 ml medications Current Medications Medications Dose Ordered Sig/Estelle Route Start Time Stop Time Status Last Admin Dose Admin Pantoprazole Sodium 40 mg DAILY IV 07/08/25 10:00 07/13/25 10:08 40 MG Diagnostic Test (Pha) 1 strip Q6HR 07/08/25 00:00 07/13/25 05:08 1 STRIP Insulin Human Regular Q6HR SC 07/08/25 00:00 Dextrose 50 ml UD PRN IV 07/07/25 20:00 Acetaminophen/ Hydrocodone Bitart 1 tab Q4HP PRN PO 07/07/25 20:00 07/12/25 04:48 1 TAB Ondansetron HCl 4 mg Q4HP PRN IV 07/07/25 20:00 07/11/25 21:22 4 MG Acetaminophen 650 mg Q6HP PRN PO 07/07/25 20:00 07/09/25 12:52 650 MG Morphine Sulfate 2 mg Q6HPRN PRN IV 07/07/25 20:00 Nystatin 5 ml QID MT 07/08/25 18:00 07/13/25 05:08 5 ML Midodrine 10 mg TID PO 07/10/25 06:00 07/13/25 05:08 10 MG Lactulose 30 ml BID PO 07/10/25 22:00 07/13/25 10:08 30 ML Potassium Chloride/Dextrose/ Sod Cl 1,000 ml @ 50 mls/hr Q20H IV 07/11/25 13:30 07/13/25 02:37 50 MLS/HR Fluconazole 100 mg DAILY PO 07/12/25 10:00 07/13/25 10:08 100 MG Ciprofloxacin 500 mg Q12HR PO 07/12/25 10:00 07/13/25 10:08 500 MG Enteral Nutritional Formula 240 ml TIDWM PO 07/12/25 12:00 07/13/25 10:08 240 ML Examination: GENERAL:Normal, HEENT:Normal, NECK:Normal, LUNGS:Normal, CVS:Normal, ABDOMEN:Normal, MSK:Normal, SKIN:Normal, NEURO:Normal, :Normal laboratory and microbiology Laboratory Tests 07/11/25 06:42 07/09/25 06:08 Test 07/11/25 06:42 Range/Units Serum Glucose 139 H 74-106 mg/dL Microbiology Date/Time Source Procedure Growth Status 07/09/25 08:00 Nose MRSA Screen - Final Complete 07/07/25 17:00 Voided Urine Urine Culture - Final Escherichia coli Complete Problem List/Assessment/Plan Problem List/Assessment/Plan #1 abd pain/dysphagia: with esopagitis: ppi #2 oral thrush: nystatin #3 dm: ssi #4 htn #5 obesity #6 uti with e coli: po cipro advance care planning- full code- time spent 19 mins dc planning to snf Plan discussed with: Patient My Orders My Orders Orders - THIEN LEON MD Procedure Category Date Status Time Discharge DISCHARGE 07/13/25 Verified 10:37 * Tanning Consultant CONS 07/13/25 Verified Consult Discontinue Wright MATHEUS 07/13/25 Verified Catheter 10:37 Pantoprazole Tablet PHA 07/14/25 Verified (Protonix Tablet) 06:00 Sucralfate Susp PHA 07/13/25 Verified (Carafate Susp) 22:00 Sucralfate Susp PHA 07/13/25 Verified (Carafate Susp) 10:45 Date of Service: Jul 13, 2025 Billing Provider: THIEN LEON MD Common Visit Codes: [id number] INP/OBS CARE(HIGH) THIEN LEON MD Jul 13, 2025 10:42
[2025-07-13] MEDS: SUCRALFATE 1 GM/10 ML ORAL SUSP PO ONE (11:24)
[2025-07-13 13:00] VITALS: BP 103/54; PULSE 74; RESP 18; TEMP 98.1; O2SAT 99
--- NOTE | 2025-07-13 16:26 | DVHPN2 ---
Progress Note Date Seen: Jul 13, 2025 Resident Creating Document: TIMI BURGESS RESIDENT Medical Necessity Reason Pt with a Central, PICC or Fol: No Subjective Review of Systems Patient seen and examined at bedside Denies any active ongoing abdominal pain Last bowel movement this morning, soft Denies any nausea or vomiting Tolerating diet Objective vital signs Vital Sign Date Time Temp Pulse Resp B/P (MAP) Pulse Ox O2 Delivery O2 Flow Rate FiO2 07/13/25 13:00 98.1 74 18 103/54 (70) 99 98.1 07/13/25 08:00 Room Air* 0 21 Total Intake and Output 07/12/25 07/12/25 07/13/25 15:00 23:00 07:00 Intake Total 120 ml 500 ml 1150 ml Output Total 1350 ml Balance 120 ml 500 ml -200 ml medications Current Medications Medications Dose Ordered Sig/Estelle Route Start Time Stop Time Status Last Admin Dose Admin Diagnostic Test (Pha) 1 strip Q6HR 07/08/25 00:00 07/13/25 11:24 1 STRIP Insulin Human Regular Q6HR SC 07/08/25 00:00 Dextrose 50 ml UD PRN IV 07/07/25 20:00 Acetaminophen/ Hydrocodone Bitart 1 tab Q4HP PRN PO 07/07/25 20:00 07/12/25 04:48 1 TAB Ondansetron HCl 4 mg Q4HP PRN IV 07/07/25 20:00 07/11/25 21:22 4 MG Acetaminophen 650 mg Q6HP PRN PO 07/07/25 20:00 07/09/25 12:52 650 MG Morphine Sulfate 2 mg Q6HPRN PRN IV 07/07/25 20:00 Nystatin 5 ml QID MT 07/08/25 18:00 07/13/25 11:23 5 ML Midodrine 10 mg TID PO 07/10/25 06:00 07/13/25 14:17 10 MG Lactulose 30 ml BID PO 07/10/25 22:00 07/13/25 10:08 30 ML Fluconazole 100 mg DAILY PO 07/12/25 10:00 07/13/25 10:08 100 MG Ciprofloxacin 500 mg Q12HR PO 07/12/25 10:00 07/13/25 10:08 500 MG Enteral Nutritional Formula 240 ml TIDWM PO 07/12/25 12:00 07/13/25 13:51 240 ML Pantoprazole Sodium 40 mg DAILY@0600 PO 07/14/25 06:00 Sucralfate 1 gm BID@0600,2200 PO 07/13/25 22:00 Examination General Appearance: Cooperative. Well developed. Well nourished. NAD Pulmonary/Respiratory: Equal bilateral air entry Cardiovascular/Chest: Regular rate and rhythm. No murmurs. Abdominal Exam: Normal bowel sounds. Soft. normal abdomen, no visible veins, minimal tenderness to palpation, generalized. No hepatospenomegaly. No masses Neuro/Mental Status: A&O x3. Coherent. Skin Exam: Normal inspection. Normal color. Warm. Dry laboratory and microbiology Laboratory Tests 07/11/25 06:42 07/09/25 06:08 Test 07/11/25 06:42 Range/Units Serum Glucose 139 H 74-106 mg/dL Microbiology Date/Time Source Procedure Growth Status 07/09/25 08:00 Nose MRSA Screen - Final Complete 07/07/25 17:00 Voided Urine Urine Culture - Final Escherichia coli Complete Labs and/or images reviewed: Labs reviewed by me, Image(s) reviewed by me Problem List/Assessment/Plan Problem List/Assessment/Plan Acute intractable abdominal pain, now resolved Hiatal hernia with esophagitis Constipation, now resolved Oral thrush Acute complicated UTI Plan: Pending discharge to SNF Add Glucerna to each meal Continue Diflucan and ciprofloxacin Continue bowel regimen Physical therapy Thank you so much for the opportunity to consult on your patient. GI team will follow the patient. In case of any questions or concerns please feel free to reach out. Plan discussed with Dr. Dalton Plan discussed with: Patient, Other (RN) Dietary Evaluation Review Comments: Nutrition Recommendation 1) Continue current POC 2) Consider CCHO 60gm + cardiac Msoft if PO intake >75% 3) Monitor PO intake, lab values, weight trend, and I/O Expected Outcomes/Goals: To meet >75% estimated needs GI symptoms to improve Fu 3-5 days TIMI BURGESS RESIDENT Jul 13, 2025 16:26
[2025-07-13 16:34] VITALS: BP 119/74; PULSE 76; RESP 18; TEMP 98.3; O2SAT 97
[2025-07-13] MEDS ORDERED: SUCRALFATE 1 GM/10 ML ORAL SUSP PO SCH (22:00)
[2025-07-14] MEDS ORDERED: PANTOPRAZOLE 40 MG TAB PO SCH (06:00)
== END 2025-07-13 18:58 | DRG 392 ==
LOC: ER 16:08 → EDBD 16:08 → OVERFLOW 19:56 → CENTRAL 07-08 18:22
PROVIDERS: ADMIT Internal Medicine; ATTEND Internal Medicine
PROC: 0DB68ZX Excision of Stomach, Via Natural or Artificial Opening Endoscopic, Diagnostic (ICD-10-PCS; 2025-07-10)
PROC: 0DB98ZX Excision of Duodenum, Via Natural or Artificial Opening Endoscopic, Diagnostic (ICD-10-PCS; principal; 2025-07-10 12:27)
DX: K29.70 Gastritis, unspecified, without bleeding (principal); B37.0 Candidal stomatitis; R47.01 Aphasia; N39.0 Urinary tract infection, site not specified; K29.90 Gastroduodenitis, unspecified, without bleeding; K29.80 Duodenitis without bleeding; K44.9 Diaphragmatic hernia without obstruction or gangrene; E87.6 Hypokalemia; I95.9 Hypotension, unspecified; E66.9 Obesity, unspecified; I48.91 Unspecified atrial fibrillation; I10 Essential (primary) hypertension; G90.89 Other disorders of autonomic nervous system; R13.10 Dysphagia, unspecified; E11.9 Type 2 diabetes mellitus without complications; K59.00 Constipation, unspecified; K31.9 Disease of stomach and duodenum, unspecified; E78.5 Hyperlipidemia, unspecified; K21.9 Gastro-esophageal reflux disease without esophagitis; Z88.6 Allergy status to analgesic agent; Z88.0 Allergy status to penicillin; Z79.899 Other long term (current) drug therapy; Z68.33 Body mass index [BMI] 33.0-33.9, adult
CPT/HCPCS: 36415; 43239; 71045; 74018; 74176; 80048; 80053; 81001; 82962; 83036; 83690; 83735; 84443; 85025; 85610; 86850; 86900; 86901; 87081; 87086; 87088; 87186; 93005; 96365; 96375; 97110; 97116; 97163; 97530; G0378; J1450; J1956; J2250; J2405; J2470; J2704; J3480